=== PATIENT | male | born 1950 | race African-American/Black ===

== ENCOUNTER → 2018-12-05 | Outpatient (CLI) | payer MEDICARE ==
[~2018-12-05] MED LIST: ASPIR 8181 MG PO; ATORVASTATIN CA20 MG PO; GLIPIZIDE5 MG PO; IOPAMIDOL 370 MG/ML 200 ML INFUS..BTL INJ ONE; LEVEMIR100 UNIT/1 SC; LOSARTAN POTASS25 MG PO; METFORMIN HCL500 MG PO; NEXIUM40 MG PO; NITROGLYCERIN1 EAC1 TOP; PLAVIX75 MG PO; SODIUM CHLORIDE 0.9% 250ML 0 ML ONE; SODIUM CHLORIDE 0.9% 250ML 250 ML ONE; TOPROL XL50 MG PO; TYLENOL WITH C1 EACH PO
[2018-12-05 10:31] LABS: BLOOD UREA NITROGEN 17 mg/dL (7-26); BUN/CREATININE RATIO 17 (6-25); CREATININE, SERUM 0.99 mg/dL (0.72-1.25); EST GLOMERULAR FILTRATION RATE > 60 ML/MIN (60-)
--- NOTE | 2018-12-05 12:47 | Diagnostic Imaging Report ---
EXAM: CT abdomen and pelvis without and with contrast - Hematuria protocol INDICATION: Gross hematuria. COMPARISON: None. TECHNIQUE: Abdomen and pelvis were scanned in prone position without and with contrast. Delayed phase imaging obtained. Coronal and sagittal reformations were obtained. Routine protocol was performed. Scan was performed when during portal venous phase. IV CONTRAST: 150 mL of Isovue 370. ORAL CONTRAST: None RADIATION DOSE: Total DLP: 940.5 mGy*cm COMPLICATIONS: None FINDINGS: LINES and TUBES: None. LOWER THORAX: There is a 7 mm solid nodule within the right middle lobe. Coronary atherosclerosis. HEPATOBILIARY: There is a heterogeneous right hepatic dome lesion, measuring up to 2.8 cm, with suggestion of peripheral nodular enhancement. No biliary ductal dilation. GALLBLADDER: No radio-opaque stones or sludge. No wall thickening. SPLEEN: No splenomegaly. PANCREAS: No focal masses or ductal dilatation. ADRENALS: No adrenal nodules. Mildly thick walled left adrenal gland without discrete nodule. 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 No evidence of renal or ureteral stone. There are multiple stones within the ileal conduit, measuring up to 5 mm. No evidence of hydronephrosis. Kidneys enhance symmetrically. No hydronephrosis. No evidence of solid mass. The majority of the ureters are partially opacified and demonstrate no specific evidence of urothelial lesion. Pelvis: Multiple surgical clips within the pelvis and lower abdomen. There is a penile pump device. There are extensive postsurgical changes in the pelvis. There is presacral soft tissue thickening and stranding. The rectum is not well-visualized, and there is ill-defined air in the region of the lower pelvis which does not appear to be intraluminal for example on series 6, image 173. No evidence of drainable fluid collection. GI TRACT: No abnormal distention, wall thickening, or evidence of bowel obstruction. Status post appendectomy. There is distal transverse colostomy. Status post partial left colectomy. The descending and sigmoid colon and proximal rectum is visualized, however the distal rectum is not visualized. LYMPH NODES: No lymphadenopathy. VESSELS: There is moderate atherosclerotic disease in the aorta and major arterial branches. PERITONEUM / RETROPERITONEUM: No free air or fluid. BONES AND SOFT TISSUES: No acute bony findings or suspicious lytic or blastic lesions. IMPRESSION: Status post cystectomy with ileal conduit. Nonobstructing stones within the ileal conduit. No evidence of renal stone, hydronephrosis, or mass lesion. Status post partial left colectomy with distal transverse colostomy. Extensive postsurgical changes in the pelvis with presacral stranding and thickening. No evidence of drainable fluid collection. There is also ill-defined air in the region of lower pelvis, likely not intraluminal, with the distal rectum not visualized. Suggest correlation with surgical history. Comparison with prior imaging would be helpful. A 2.8 cm peripherally nodular enhancing lesion within the right hepatic lobe. This may represent a hemangioma, but is not completely evaluated on this study. Suggest liver protocol CT or MRI for further evaluation. A 7 mm solid nodule in the right middle lobe. Chest CT is recommended for further evaluation. Signed by: Dr. Kari Fragoso MD on 12/05/2018 12:43 PM
== END ==
LOC: CT 09:16
PROVIDERS: ATTEND Urology
DX: R31.0 Gross hematuria (principal)
CPT/HCPCS: 36415; 74178; 82565; 84520; J7050; Q9967

== ENCOUNTER → 2019-03-01 | Day surgery (SDC) | payer MEDICARE ==
[2019-02-27 13:33] LABS: BASOPHILS % 0.6 % (0.0-1.0); EOSINOPHILS # (AUTO) 0.1 (0.0-0.4); EOSINOPHILS % 1.8 % (0.0-6.0); HEMATOCRIT 38.9 % (38.2-49.6); LYMPHOCYTES # (AUTO) 1.7 (1.0-3.2); LYMPHOCYTES % 30.6 % (18.0-39.1); MEAN CORPUSCULAR HEMOGLOBIN 25.5 pg (28-32); MEAN CORPUSCULAR HGB CONC 30.8 g/dL (31-35); MEAN CORPUSCULAR VOLUME 82.6 fL (81-99); MONOCYTES # (AUTO) 0.4 (0.2-0.8); MONOCYTES % 7.9 % (4.4-11.3); NEUTROPHILS # (AUTO) 3.2 (2.1-6.9); NEUTROPHILS % 58.9 % (38.7-80.0); PLATELET COUNT 242 x10e3/uL (140-360); RED BLOOD COUNT 4.71 x10e6/uL (4.3-5.7)
[2019-02-27 13:54] LABS: ANION GAP 17.9 mmol/L (8-16); BLOOD UREA NITROGEN 21 mg/dL (7-26); BUN/CREATININE RATIO 20 (6-25); CALCIUM 9.5 mg/dL (8.4-10.2); CARBON DIOXIDE 22 mmol/L (22-29); CHLORIDE 104 mmol/L (98-107); CREATININE, SERUM 1.04 mg/dL (0.72-1.25); EST GLOMERULAR FILTRATION RATE > 60 ML/MIN (60-); GLUCOSE 91 mg/dL (74-118); POTASSIUM 3.9 mmol/L (3.5-5.1); SODIUM 140 mmol/L (136-145)
--- NOTE | 2019-02-27 15:12 | Diagnostic Imaging Report ---
EXAMINATION: CHEST 2 VIEWS INDICATION: Pre-operative COMPARISON: Chest radiograph of 07/11/2018 FINDINGS: LINES/TUBES:None LUNGS:The lungs are well-inflated. No focal consolidation or pulmonary edema. PLEURA:No pleural effusion or pneumothorax. MEDIASTINUM:The cardiomediastinal silhouette appears normal in size and shape. BONES/SOFT TISSUES:No acute osseous injury. ABDOMEN:No free air under the diaphragm. IMPRESSION: No focal pneumonia or pulmonary edema. Signed by: Sukhdev Miles MD on 02/27/2019 3:08 PM
[~2019-03-01] MED LIST changes: +B&O 60MG R/S 60 MG SUPP PR ONE; +CEFTRIAXONE SOD 1 GM/NS 50 ML 50 ML IV ONE; +FENTANYL CITRATE/PF 100MCG/2 ML INJ ONE; +GENTAMICIN 80MG/NS 100 ML 200 ML IV ONE; -IOPAMIDOL 370 MG/ML 200 ML INFUS..BTL INJ ONE; +IOPAMIDOL 610MG/1ML 300 MG/ML VIAL IV ONE; +LIDOCAINE HCL 2% LOCAL INJ 5 ML SDV VIAL INJ ONE; +MIDAZOLAM HCL 2 MG/2 ML VIAL ONE; +ONDANSETRON HCL INJ 2MG/ML 2ML 2 MG/ML VIAL ONE; +PHENYLEPHRINE HCL 1% 10 MG/ML VIAL ONE; +PROPOFOL IV EMULSION 10 MG/ML 20 ML VIAL ONE; +SEVOFLURANE INHAL SOLN 250 ML PEN BTL ONE; -SODIUM CHLORIDE 0.9% 250ML 0 ML ONE; -SODIUM CHLORIDE 0.9% 250ML 250 ML ONE
--- OUTSIDE RECORDS SUMMARY | 2019-03-01 11:15 | XMS REPORT | Clinical Summary ---
Author Author [facility] Organization [facility] Address Unknown Phone Unavailable Care Team Providers Care Content Specialist Name Role Phone Donaldo Stearns MD PCP Unavailable Allergies Comments Active Allergy Reactions Severity Noted Date Cefotetan Hives Medium 10/03/2016 Medications End Date Status Medication Sig Dispensed Refills Start Date Active metFORMIN (GLUCOPHAGE) Take 500 mg 0 500 mg tablet by mouth 2 (two) times a day with meals. Active sitaGLIPtin (JANUVIA) 100 Take 100 mg 0 MG tablet by mouth daily. Active glipiZIDE (GLUCOTROL) 10 Take 10 mg by 0 MG tablet mouth 2 (two) times a day before meals. Active lisinopril Take 5 mg by 0 (PRINIVIL,ZESTRIL) 5 mg mouth daily. tablet Active atorvastatin (LIPITOR) 80 Take 40 mg by 0 MG tablet mouth daily. Active aspirin (ECOTRIN) 81 MG Take 81 mg by 0 enteric coated tablet mouth daily. Active insulin detemir (LEVEMIR) Inject 10 0 100 unit/mL injection Units under the skin nightly. Active Problems No known active problems Social History Date Tobacco Use Types Packs/Day Years Used Never Assessed Sex Assigned at Date Recorded Not on file Industry Job Start Date Occupation Not on file Not on file Not on file Travel End Travel History Travel Start No recent travel history available. Last Filed Vital Signs Not on file Plan of Treatment Health Maintenance Due Date Last Done Comments COLONOSCOPY SCREENING 10/30/2001 SHINGLES VACCINES (#1) 10/30/2001 65+ PNEUMOCOCCAL VACCINE 10/30/2016 (1 of 2 - PCV13) INFLUENZA VACCINE 02/28/2019 Results Not on fileafter 02/28/2018 Insurance Type Payer Benefit Subscriber ID Effective Phone Address Plan / Dates Group [facility] MEDICARE AARP xxxxxxxxx [id number] MEDICARE resent [facility] [facility] Advance Directives Patient has advance care planning documents on file. For more information, tyrese lawrence contact: [facility] [address] [place] [address]
--- OUTSIDE RECORDS SUMMARY | 2019-03-01 11:16 | XMS REPORT ---
Author Author Donaldo Stearns Organization [employer] Address Unknown Phone Unavailable Care Team Providers Care Bessemer Converter Blower Name Role Phone Donaldo Stearns CP Unavailable Allergies No Known Allergies Problems Problem Type Condition Code Onset Dates Condition Status Problem Allergic bronchitis, unspecified asthma severity, uncomplicated J45.909 Active Problem Type 2 diabetes mellitus with hyperglycemia E11.65 Active Problem Hx of colonic polyp Z86.010 Active Problem Coronary artery disease involving [place] coronary artery of [place] heart without angina pectoris I25.10 Active Problem Personal history of malignant neoplasm of prostate Z85.46 Active Problem Moderate aortic stenosis I35.0 Active Problem Benign essential hypertension I10 Active Problem 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 Active Problem 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 Active Problem Diabetic polyneuropathy associated with type 2 diabetes mellitus E11.42 Active Problem penitentiary current use of insulin Z79.4 Active Problem Occlusion and stenosis of bilateral carotid arteries I65.23 Active Problem Cardiomyopathy, unspecified type I42.9 Active Problem History of penile implant Z98.89 Active Problem 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 Active Problem Athscl heart disease of [place] coronary artery w/o ang pctrs I25.10 Active Problem Benign paroxysmal positional vertigo, unspecified laterality H81.10 Active Problem Other and unspecified hyperlipidemia E78.5 Active Problem Cardiomyopathy, unspecified I42.9 Active Problem Type II or unspecified type diabetes mellitus with neurological manifestations, not stated as uncontrolled E11.49 Active Problem Occlusion and stenosis of unspecified carotid artery I65.29 Active Problem Hx of radical prostatectomy Z90.79 Active Problem Abdominal aortic aneurysm without rupture I71.4 Active Medications Medication Code System Code Instructions Start Date End Date Status Dosage Hemocyte Plus NDC [id number] 106-1 MG Orally Once a day February 15, 2019 Active 1 capsule Results No Known Results Summary Purpose [employer] Submission
--- OUTSIDE RECORDS SUMMARY | 2019-03-01 11:16 | XMS REPORT | Continuity of Care Document ---
Author Author [employer] Organization [employer] Address Unknown Phone Unavailable Care Team Providers Care Raw Sampler Name Role Phone [facility] Unavailable Unavailable Problems Problem Status Onset Date Classification Date Reported Comments Source Benign paroxysmal positional vertigo, unspecified laterality Active Problem 02/16/2019 2.0.1.098385.4.391.11.72431 Type II or unspecified type diabetes mellitus with neurological manifestations, not stated as uncontrolled Active Problem 02/16/2019 2.0.1.472910.4.391.11.65783 History of penile implant Active Problem 02/16/2019 2.0.1.955151.4.391.11.59458 Abdominal aortic aneurysm without rupture Active Problem 02/16/2019 2.0.1.666898.4.391.11.07101 Occlusion and stenosis of unspecified carotid artery Active Problem 02/16/2019 2.0.1.357374.4.391.11.35150 Allergic bronchitis, unspecified asthma severity, uncomplicated Active Problem 02/16/2019 2.16840.1.833444.4.391.11.27630 Hx of radical prostatectomy Active Problem 02/16/2019 2.0.1.327667.4.391.11.32272 Colovesical fistula Active Problem 02/16/2019 2.0.1.032280.4.391.11.53920 Cardiomyopathy, unspecified Active Problem 02/16/2019 2.160.1.304148.4.391.11.03253 Other and unspecified hyperlipidemia Active Problem 02/16/2019 2.840.1.884616.4.391.11.76829 Status of other artificial opening of urinary tract Active Problem 02/16/2019 2.16840.1.530207.4.391.11.47855 Personal history of malignant neoplasm of prostate Active Problem 02/16/2019 2.16.840.1.527884.4.391.11.97778 Athscl heart disease of [place] coronary artery w/o ang pctrs Active Problem 02/16/2019 2.16.840.1.636632.4.391.11.27908 Acquired stenosis of aortic valve Active Problem 01/20/2018 2.16.840.1.730116.4.391.11.35237 Benign essential hypertension Active Problem 02/16/2019 2.16.840.1.621569.4.391.11.50373 Diabetic polyneuropathy associated with type 2 diabetes mellitus Active Problem 02/16/2019 2.16.840.1.035634.4.391.11.65834 detention current use of insulin Active Problem 02/16/2019 2.16.840.1.446273.4.391.11.69762 Cardiomyopathy, unspecified type Active Problem 02/16/2019 2.16.840.1.510945.4.391.11.15469 Hx of colonic polyp Active Problem 02/16/2019 2.16.840.1.973650.4.391.11.77757 Type 2 diabetes mellitus with hyperglycemia Active Problem 02/16/2019 2.16.840.1.245419.4.391.11.72975 Liver mass Active Problem 08/30/2018 2.16.840.1.262637.4.391.11.98347 Ecchymoses, spontaneous Active Diagnosis 02/02/2017 2.16.840.1.942689.4.391.11.82548 Acute pharyngitis, unspecified etiology Active Diagnosis 02/18/2017 2.16.840.1.669495.4.391.11.24827 Occlusion and stenosis of bilateral carotid arteries Active Problem 02/16/2019 2.16.840.1.558284.4.391.11.58058 Encounter for general adult medical examination with abnormal findings Active Diagnosis 10/05/2017 2.16.840.1.724448.4.391.11.93277 BMI 25.0-25.9,adult Active Diagnosis 10/05/2017 2.16.840.1.147721.4.391.11.02844 Moderate aortic stenosis Active Problem 02/16/2019 2.16.840.1.678697.4.391.11.05264 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4.391.11.82062 Medications Medication Details Route Status Patient Instructions Ordering Provider Order Date Source Hemocyte Plus 1 capsule Orally Active 106-1 MG Orally Once a day Daryn 02/15/2019 2.16.840.1.358264.4.391.11.01507 Levemir FlexTouch inject Subcutaneously Active 100 units/mL Subcutaneously 50 units at night Daryn 11/03/2017 2.16.840.1.648659.4.391.11.77531 Advil Cold/Sinus 1 tablet as needed Orally Active 30-200 MG Orally every 6 hrs Daryn 02/14/2017 2.16.840.1.650102.4.391.11.63838 Zithromax Tri-Jd as directed Orally Active 500 MG Orally as directed Daryn 02/14/2017 2.16.840.1.166902.4.391.11.73474 Advil Cold/Sinus 1 tablet as needed Orally Active 30-200 MG Orally every 6 hrs Daryn 02/14/2017 2.16.840.1.522742.4.391..95581 Levemir Flex Touch Inject Subcutaneous Active 100 units/mL Subcutaneous 10 units Once daily with evening meal or at bedtime Daryn 12/27/2016 2.16.840.1.376319.4.391.68 Levemir Flex Touch Inject Subcutaneous Active 100 units/mL Subcutaneous 10 units Once daily with evening meal or at bedtime Daryn 12/27/2016 2.16.840.1.900062.4.391..46140 Promethazine-DM 5 ml as needed Orally Active 6.25-15 MG/5ML Orally every 6 hrs Daryn 10/12/2016 2.16.840.1.338016.4.391.68 Breo Ellipta 1 puff Inhalation Active 100-25 MCG/INH Inhalation Once a day Daryn 10/12/2016 2.16.840.1.214152.4.391.68 Naprosyn 1 tablet as needed Orally Active 500 mg Orally every 12 hrs Daryn 04/05/2016 2.16.840.1.971262.4.391.68 Zantac 1 tablet at bedtime Orally Active 150 MG Orally twice a day (bid) Daryn 04/05/2016 2.16.840.1.973657.4.391.68 Levemir Inject 10 UNITS Subcutaneous Active 100 UNIT/ML Subcutaneous ONCE AT BEDTIME Daryn 12/22/2015 2.16.840.1.752629.4.391.68 Hemocyte Plus 1 capsule Orally Active 106-1 MG Orally Once a day Daryn 12/22/2015 2.16.840.1.858575.4.391..08759 Tradjenta 1 tablet Orally Active 5 MG Orally Once a day Daryn 07/14/2015 2.16.840.1.385999.4.391..72675 GlipiZIDE ER TAKE ONE TABLET BY MOUTH TWICE DAILY Orally Active 10MG Orally twice a day (bid) Daryn 2.16840.1.800336.4.391 MetFORMIN HCl ER 2 tablet with evening meal Orally Active 500MG Orally twice a day (bid) Daryn 840.1.524098.4.391. Atorvastatin Calcium 1 tablet Orally Active 40MG Orally Once a day Daryn 840.1.652199.4.391. Aspir-81 1 tablet Orally Active 81 MG Orally Once a day Daryn 09.15.830.1.276180.4.391 Lisinopril 1 tablet Orally Active 5MG Orally Once a day Daryn 09.15.830.1.898796.4.391. Losartan Potassium 1/2 half tablet Orally Active 25 MG Orally Once a day Daryn 09.15.830.1.562010.4.391 MetFORMIN HCl ER 2 tablet with evening meal Orally Active 500MG Orally twice a day (bid) Daryn 09.15.830.1.343453.4.391 Levemir INJECT 10 UNITS SUBCUTANEOUSLY ONCE AT BEDTIME NA Active 100UNIT Daryn 840.1.284807.4.391 GlipiZIDE ER TAKE ONE TABLET BY MOUTH TWICE DAILY Orally Active 10MG Orally twice a day (bid) Daryn 840.1.417642.4.391 Januvia 1 tablet Orally Active 100MG Orally Once a day Daryn 840.1.024160.4.391 Losartan Potassium 1/2 half tablet Orally Active 25 MG Orally Once a day Daryn 840.1.151960.4.391. Aspir-81 1 tablet Orally Active 81 MG Orally Once a day Daryn 09.15.830.1.512593.4.391 Atorvastatin Calcium TAKE 1 TABLET BY MOUTH ONCE A DAY NA Active 40 MG Daryn 840.1.799468.4.391. Nitro-Dur 1 patch to skin remove after 12 hours Transdermal Active 0.1 MG/HR Transdermal Once a day Daryn 09.15.830.1.253307.4.391 GlipiZIDE ER TAKE 1 TABLET BY MOUTH TWICE DAILY NA Active 10 MG Daryn 09.15.830.1.543573.4.391 Metoprolol Tartrate 1 tablet with food Orally Active 25 MG Orally daily Daryn 840.1.282147.4.391 Levemir INJECT 25 UNITS SUBCUTANEOUSLY ONCE AT BEDTIME NA Active 100UNIT Daryn 09.15.830.1.075149.4.391 Plavix 1 tablet Orally Active 75 MG Orally Once a day Daryn 09.15.830.1.386532.4.391 MetFORMIN HCl ER TAKE 2 TABLETS BY MOUTH TWICE A DAY NA Active 500 MG Daryn 840.1.849948.4.391 OneTouch Delica Lancets 33G USE ONE LANCET TO CHECK BLOOD GLUCOSE TRHEE TIMES DAILY NA Active 33G Daryn 09.15.830.1.623948.4.391 Ranexa 1 tablet Orally Active 1000 MG Orally Twice a day Daryn 09.15.830.1.768109.4.391 OneTouch Verio USE ONE STRIP TO CHECK BLOOD GLUCOSE THREE TIMES DAILY NA Active - Daryn 840.1.880615.4.391 Januvia 1 tablet Orally Active 100 mg Orally Once a day Daryn 840.1.288005.4.391 MetFORMIN HCl ER 2 tablets Orally Active 500 mg Orally twice a day (bid) Daryn 840.1.869825.4.391 Atorvastatin Calcium 1 tablet Orally Active 40 mg Orally Once a day Daryn 09.15.830.1.577585.4.391 Omeprazole 1 capsule Orally Active 40 MG Orally Once a day Daryn 840.1.318876.4.391 GlipiZIDE 1 tablet Orally Active 10 mg Orally twice a day (bid) Daryn 09.15.830.1.430445.4.391 Lisinopril 1 tablet Orally Active 5 MG Orally Once a day Daryn 09.15.830.1.565620.4391 Luisuvia Unknown Orally Active 25 MG Orally Daryn 840.1.596252.4391 Acetaminophen With Codeine (Tylenol With Codeine #3 Tablet) 1 Each Tablet Every 4 Hours as needed for Pain Active [facility] Aspirin (Aspir 81) 81 Mg Tablet. Daily Active [facility] Atorvastatin Calcium 20 Mg Tablet Daily Active [facility] Clopidogrel Bisulfate (Plavix) 75 Mg Tablet Daily Active [facility] Esomeprazole Magnesium (Nexium) 40 Mg Capsule. Daily Active PROTONIX THERAPEUTIC SUBSTITUTE FOR NEXIUM PER [facility] Glipizide 5 Mg Tablet Daily Active [facility] Insulin Detemir (Levemir) 100 Unit/1 Ml Vial Daily Active [facility] Losartan Potassium 25 Mg Tablet Daily Active [facility] Metformin Hcl 500 Mg Tablet Twice A Day Active [facility] Metoprolol Succinate (Toprol Xl) 50 Mg Tab.er.24h Daily Active [facility] Nitroglycerin (Nitroglycerin Patch) 1 Each Patch.td24 Active WEARS FOR 12 HRS [facility] Allergies, Adverse Reactions, Alerts Substance Category Reaction Severity Reaction type Status Date Reported Comments Source sulfa Adverse Reaction Info Not Available Adverse Reaction Active 01/12/2018 2..840.1.436702.4.391 Cefotetan HIVES, BURNING Unknown Allergy to Substance Active 07/09/2018 [facility] Sulfacet-R Adverse Reaction Info Not Available Adverse Reaction Active 08/17/2018 2.16.840.1.878990.4.391 Cefotetan Disodium Adverse Reaction Info Not Available Adverse Reaction Active 08/17/2018 2..840.1.175276.4.391 Immunizations Immunization Date Given Site Status Last Updated Comments Source FLU VACCINE NO PRESERV 3 & > 04/05/2016 completed 2.16.840.1.159730.4.391.11.49401 Results Order Name Results Value Reference Range Date Interpretation Comments Source Capillary blood glucose measurement by glucometer (mass/volume) 274 70 - 120 07/17/2018 [facility] Blood leukocytes automated count (number/volume) 5.92 4.8 - 10.8 07/14/2018 [facility] Blood erythrocytes automated count (number/volume) 3.87 4.3 - 5.7 07/14/2018 [facility] Blood hemoglobin measurement (moles/volume) 10.0 14.0 - 18.0 07/14/2018 [facility] Automated blood hematocrit (volume fraction) 32.9 38.2 - 49.6 07/14/2018 [facility] Automated erythrocyte mean corpuscular volume 85.0 81 - 99 07/14/2018 [facility] Automated erythrocyte mean corpuscular hemoglobin (mass per erythrocyte) 25.8 28 - 32 07/14/2018 [facility] Automated erythrocyte mean corpuscular hemoglobin concentration measurement (mass/volume) 30.4 31 - 35 07/14/2018 [facility] RDW BldCo-Rto 14.9 11.7 - 14.4 07/14/2018 [facility] Automated blood platelet count (count/volume) 243 140 - 360 07/14/2018 [facility] Automated blood segmented neutrophil count as percentage of total leukocytes 68.0 38.7 - 80.0 07/14/2018 [facility] Automated blood lymphocyte count as percentage ot total leukocytes 21.6 18.0 - 39.1 07/14/2018 [facility] Automated blood monocyte count as percentage of total leukocytes 7.6 4.4 - 11.3 07/14/2018 [facility] Automated blood eosinophil count as percentage of total leukocytes 1.9 0.0 - 6.0 07/14/2018 [facility] Automated blood basophil count as percentage of total leukocytes 0.7 0.0 - 1.0 07/14/2018 [facility] IM GRANULOCYTES % 0.2 0.0 - 1.0 07/14/2018 [facility] Automated blood neutrophil count 4.0 2.1 - 6.9 07/14/2018 [facility] Blood lymphocytes count (number/volume) 1.3 1.0 - 3.2 07/14/2018 [facility] Blood monocytes automated count (number/volume) 0.5 0.2 - 0.8 07/14/2018 [facility] Automated blood eosinophil count 0.1 0.0 - 0.4 07/14/2018 [facility] Automated blood basophil count (count/volume) 0.0 0.0 - 0.1 07/14/2018 [facility] Absolute Immature Granulocyte (auto 0.01 0 - 0.1 07/14/2018 [facility] Serum or plasma sodium measurement (moles/volume) 137 136 - 145 07/14/2018 [facility] Serum or plasma potassium measurement (moles/volume) 4.4 3.5 - 5.1 07/14/2018 [facility] Serum or plasma chloride measurement (moles/volume) 108 98 - 107 07/14/2018 [facility] Serum or plasma carbon dioxide, total measurement (moles/volume) 17 22 - 29 07/14/2018 [facility] Serum or plasma anion gap 16.4 8 - 16 07/14/2018 [facility] Serum or plasma urea nitrogen measurement (mass/volume) 7 7 - 26 07/14/2018 [facility] Serum or plasma creatinine measurement (mass/volume) 0.83 0.72 - 1.25 07/14/2018 [facility] Serum or plasma urea nitrogen/creatinine mass ratio 8 6 - 25 07/14/2018 [facility] Estimated glomerular filtration rate (GFR) determination > 60 60 07/14/2018 [facility] Glucose measurement 165 74 - 118 07/14/2018 [facility] Serum or plasma calcium measurement (mass/volume) 8.4 8.4 - 10.2 07/14/2018 [facility] Pathology Reports No Data Provided for This Section Diagnostic Reports No Data Provided for This Section Consultation Notes No Data Provided for This Section Discharge Summaries No Data Provided for This Section History and Physicals No Data Provided for This Section Vital Signs Vital Sign Value Date Comments Source Weight 165.8 08/17/2018 2.16.840.1.693613.4.391.11.25193 Height 68.0 08/17/2018 2.16.840.1.729594.4.391.11.58568 Temperature Oral (F) 96.0 F 08/17/2018 2.16.840.1.831325.4.391.11.42596 Heart Rate 85 08/17/2018 2.16.840.1.143056.4.391.11.59022 Diastolic (mm Hg) 70 08/17/2018 2.16.840.1.379630.4.391.11.92426 Systolic (mm Hg) 108 08/17/2018 2.16.840.1.114653.4.391.11.04172 Weight 168.4 04/20/2018 2.16.840.1.679640.4.391.11.79100 Height 68.0 04/20/2018 2.16.840.1.404880.4.391.11.16257 Temperature Oral (F) 97.5 F 04/20/2018 2.16.840.1.001871.4.391.11.61494 Heart Rate 91 04/20/2018 2.16.840.1.462512.4.391.11.51354 Diastolic (mm Hg) 72 04/20/2018 2.16.840.1.830537.4.391.11.61373 Systolic (mm Hg) 111 04/20/2018 2.16.840.1.601740.4.391.11.28743 Weight 167.9 01/12/2018 2.16.840.1.920081.4.391.11.40677 Height 68.0 01/12/2018 2.16.840.1.755157.4.391.11.08895 Temperature Oral (F) 97.5 F 01/12/2018 2.16.840.1.388252.4.391.11.32178 Heart Rate 82 01/12/2018 2.16.840.1.415215.4.391.11.77833 Diastolic (mm Hg) 71 01/12/2018 2.16.840.1.576578.4.391.11.32635 Systolic (mm Hg) 121 01/12/2018 2.16.840.1.313198.4.391.11.54049 Weight 167.5 10/13/2017 2.16.840.1.300210.4.391.11.75605 Height 68.0 10/13/2017 2.16.840.1.769992.4.391.11.67256 Temperature Oral (F) 98.1 F 10/13/2017 2.16.840.1.810211.4.391.11.05174 Heart Rate 77 10/13/2017 2.16.840.1.600636.4.391.11.41428 Diastolic (mm Hg) 69 10/13/2017 2.16.840.1.222514.4.391.11.22385 Systolic (mm Hg) 111 10/13/2017 2.16.840.1.797845.4.391.11.24693 Weight 169.8 09/15/2017 2.16.840.1.900646.4.391.11.72164 Height 68.0 09/15/2017 2.16.840.1.186877.4.391.11.46304 Temperature Oral (F) 98.0 F 09/15/2017 2.16.840.1.179609.4.391.11.17938 Heart Rate 83 09/15/2017 2.16.840.1.438389.4.391.11.42006 Diastolic (mm Hg) 72 09/15/2017 2.16.840.1.769553.4.391.11.78721 Systolic (mm Hg) 122 09/15/2017 2.16.840.1.198230.4.391.11.95736 Weight 164.4 05/15/2017 2.16.840.1.428079.4.391.11.94796 Height 68.0 05/15/2017 2.16.840.1.472089.4.391.11.29172 Temperature Oral (F) 98.3 F 05/15/2017 2.16.840.1.935791.4.391.11.50375 Heart Rate 76 05/15/2017 2.16.840.1.186988.4.391.11.14876 Diastolic (mm Hg) 69 05/15/2017 2.16.840.1.410298.4.391.11.49587 Systolic (mm Hg) 115 05/15/2017 2.16.840.1.167897.4.391.11.01023 Weight 158 02/14/2017 2.16.840.1.066251.4.391.11.92643 Height 68.0 02/14/2017 2.16.840.1.697845.4.391.11.22901 Temperature Oral (F) 98.4 F 02/14/2017 2.16.840.1.451250.4.391.11.68623 Heart Rate 85 02/14/2017 2.16.840.1.378085.4.391.11.70392 Diastolic (mm Hg) 70 02/14/2017 2.16.840.1.885921.4.391.11.41861 Systolic (mm Hg) 98 02/14/2017 2.16.840.1.303447.4.391.11.98100 Weight 160.7 01/23/2017 2.16.840.1.727569.4.391.11.91763 Height 68.0 01/23/2017 2.16.840.1.501292.4.391.11.10028 Temperature Oral (F) 98.4 F 01/23/2017 2.16.840.1.632273.4.391.11.98693 Heart Rate 75 01/23/2017 2.16.840.1.828216.4.391.11.43893 Diastolic (mm Hg) 59 01/23/2017 2.16.840.1.782760.4.391.11.04949 Systolic (mm Hg) 91 01/23/2017 2.16.840.1.622827.4.391.11.30460 Weight 161 01/12/2017 2.16.840.1.434843.4.391.11.49364 Height 68.0 01/12/2017 2.16.840.1.525117.4.391.11.56268 Temperature Oral (F) 98.2 F 01/12/2017 2.16.840.1.920130.4.391.11.04677 Heart Rate 76 01/12/2017 2.16.840.1.771768.4.391.11.07663 Diastolic (mm Hg) 63 01/12/2017 2.16.840.1.744656.4.391.11.15491 Systolic (mm Hg) 105 01/12/2017 2.16.840.1.012573.4.391.11.58698 Weight 160.5 10/12/2016 2.16.840.1.571785.4.391.11.87810 Height 68.0 10/12/2016 2.16.840.1.936807.4.391.11.72294 Temperature Oral (F) 98.1 F 10/12/2016 2.16.840.1.072309.4.391.11.95515 Heart Rate 8 10/12/2016 2.16.840.1.616617.4.391.11.49208 Diastolic (mm Hg) 63 10/12/2016 2.16.840.1.629653.4.391.11.21388 Systolic (mm Hg) 100 10/12/2016 2.16.840.1.148066.4.391.11.43050 Weight 164.0 08/05/2016 2.16.840.1.272544.4.391.11.81433 Height 68.0 08/05/2016 2.16.840.1.647381.4.391.11.19025 Temperature Oral (F) 98.0 F 08/05/2016 2.16.840.1.109586.4.391.11.84079 Heart Rate 87 08/05/2016 2.16.840.1.937456.4.391.11.58556 Diastolic (mm Hg) 65 08/05/2016 2.16.840.1.634857.4.391.11.75480 Systolic (mm Hg) 94 08/05/2016 2.16.840.1.567653.4.391.11.55515 Weight 167.0 04/05/2016 2.16.840.1.962718.4.391.11.71463 Height 68.0 04/05/2016 2.16.840.1.738076.4.391.11.12277 Temperature Oral (F) 98.0 F 04/05/2016 2.16.840.1.341796.4.391.11.41052 Heart Rate 73 04/05/2016 2.16.840.1.339809.4.391.11.37630 Diastolic (mm Hg) 67 04/05/2016 2.16.840.1.294529.4.391.11.46434 Systolic (mm Hg) 114 04/05/2016 2.16.840.1.825406.4.391.11.54860 Weight 162.8 12/02/2015 2.16.840.1.521898.4.391.11.52381 Height 68.0 12/02/2015 2.16.840.1.158372.4.391.11.60617 Temperature Oral (F) 97.9 F 12/02/2015 2.16.840.1.893533.4.391.11.11092 Heart Rate 73 12/02/2015 2.16.840.1.564528.4.391.11.78111 Diastolic (mm Hg) 80 12/02/2015 2.16.840.1.376769.4.391.11.06682 Systolic (mm Hg) 128 12/02/2015 2.16.840.1.704522.4.391.11.39173 Weight 166.2 08/03/2015 2.16.840.1.442073.4.391.11.26088 Height 68.0 08/03/2015 2.16.840.1.521538.4.391.11.21675 Temperature Oral (F) 98.2 F 08/03/2015 2.16.840.1.991491.4.391.11.92339 Heart Rate 77 08/03/2015 2.16.840.1.276767.4.391.11.39613 Diastolic (mm Hg) 69 08/03/2015 2.16.840.1.200504.4.391.11.15210 Systolic (mm Hg) 111 08/03/2015 2.16.840.1.362616.4.391.11.20485 Weight 162.5 07/07/2015 2.16.840.1.449587.4.391.11.49654 Height 68.0 07/07/2015 2.16.840.1.166199.4.391.11.32834 Temperature Oral (F) 98.0 F 07/07/2015 2.16.840.1.967299.4.391.11.69210 Heart Rate 91 07/07/2015 2.16.840.1.008728.4.391.11.88753 Diastolic (mm Hg) 59 07/07/2015 2.16.840.1.924555.4.391.11.34092 Systolic (mm Hg) 98 07/07/2015 2.16.840.1.322428.4.391.11.84848 Encounters Location Location Details Encounter Type Encounter Number Reason For Visit Attending Provider ADM Date DC Date Status Source [facility] Unknown [id number] 2014 2014 2.16.840.1.494968.4.391.11.03813 [facility] Unknown [id number] 2014 2014 2.16.840.1.145229.4.391.11.16686 [facility] Unknown [id number] 2014 2014 2.16.840.1.769950.4.391.11.19360 [facility] Unknown [id number] 2014 2014 2.16.840.1.616113.4.391.11.93733 [facility] Unknown [id number] 2014 2014 2.16.840.1.329519.4.391.11.84996 [facility] Unknown [id number] 2014 2014 2.16.840.1.083260.4.391.11.69865 [facility] Unknown [id number] 2014 2014 2.16.840.1.301253.4.391.11.55653 [facility] Unknown [id number] 2014 2014 2.16.840.1.006684.4.391.11.18656 [facility] Unknown [id number] 2014 2014 2.16.840.1.036767.4.391.11.63128 [facility] Unknown [id number] 2014 2014 2.16.840.1.027310.4.391.11.61767 [facility] Unknown [id number] 2014 2014 2.16.840.1.183637.4.391.11.71127 [facility] Unknown [id number] 2014 2014 2.16.840.1.014503.4.391.11.92597 [facility] Unknown [id number] 2014 2014 2.16.840.1.334111.4.391..90653 [facility] still having dizziness [id number] 11/18/2014 11/18/2014 2.16.840.1.916568.4.391..92983 [facility] still having dizziness [id number] 11/18/2014 11/18/2014 2.16.840.1.621302.4.391..76396 [facility] still having dizziness [id number] 11/18/2014 11/18/2014 2.16.840.1.202760.4.391..27295 [facility] still having dizziness [id number] 11/18/2014 11/18/2014 2.16.840.1.858816.4.391..65175 [facility] still having dizziness [id number]-[id number] 11/18/2014 11/18/2014 2.16.840.1.157564.4.391.68 [facility] still having dizziness [id number] 11/18/2014 11/18/2014 2.16.840.1.806507.4.391.11.94440 [facility] still having dizziness [id number] 11/18/2014 11/18/2014 2.16.840.1.469117.4.391.11.71469 [facility] still having dizziness [id number] 11/18/2014 11/18/2014 2.16.840.1.281979.4.391.11.13138 [facility] still having dizziness [id number] 11/18/2014 11/18/2014 2.16.840.1.993181.4.391.11.95571 [facility] still having dizziness [id number] 11/18/2014 11/18/2014 2.16.840.1.499826.4.391.11.45069 [facility] still having dizziness [id number] 11/18/2014 11/18/2014 2.16.840.1.931296.4.391.11.02446 [facility] still having dizziness [id number] 11/18/2014 11/18/2014 2.16.840.1.204076.4.391.1144306 [facility] still having dizziness [id number] 11/18/2014 11/18/2014 2.16.840.1.016744.4.391.11.60994 [facility] Unknown [id number] 12/29/2014 12/29/2014 2.16.840.1.286729.4.391.11.26952 [facility] Unknown [id number] 12/29/2014 12/29/2014 2.16.840.1.714511.4.391.11.92259 [facility] Unknown [id number]-575s-413l290xl24o 12/29/2014 12/29/2014 2.16.840.1.513437.4.391.11.34603 [facility] Unknown [id number]-p85x-9ypq-[id number] 12/29/2014 12/29/2014 2.16.840.1.349553.4.391.11.51672 [facility] Unknown [id number] 12/29/2014 12/29/2014 2.16.840.1.896030.4.391.11.83024 [facility] Unknown [id number]-1w67-9341u3b880k8 12/29/2014 12/29/2014 2.16.840.1.408769.4.391.11.56674 [facility] Unknown [id number]-a7o0-2olz-9598-mr41u3snp795 12/29/2014 12/29/2014 2.16.840.1.524015.4.391.11.18152 [facility] Unknown [id number]-9l57-6nj808ya41v8 12/29/2014 12/29/2014 2.16.840.1.919217.4.391.11.60502 [facility] Unknown [id number]-jo1o-1cbq-b8gg-k372d531866x 12/29/2014 12/29/2014 2.16.840.1.131798.4.391.11.75490 [facility] Unknown [id number]-s7y6-0w26g3u99e61 12/29/2014 12/29/2014 2.16.840.1.943078.4.391.11.67275 [facility] Unknown [id number]-9254-3p39-4404-0m92o91n8dwl 12/29/2014 12/29/2014 2.16.840.1.618121.4.391.11.46602 [facility] Unknown [id number]-u360-0777-a5k3-6211941gq137 12/29/2014 12/29/2014 2.16.840.1.814828.4.391.11.23382 [facility] Unknown rd0uost5-ux34-5c8k-4e4i-68duz4j907e1 12/29/2014 12/29/2014 2.16.840.1.098312.4.391.11.55954 [facility] 3 month f/u a4a08l24-541e-35i7-1h86-wsm200hrw83k 01/27/2015 01/27/2015 2.16.840.1.281896.4.391.11.03805 [facility] 3 month f/u x22s242l-i035-747r-b754-256gy1p2z7k0 01/27/2015 01/27/2015 2.16.840.1.070372.4.391.11.79541 [facility] 3 month f/u 1ko1030x-7115-1e74-u138-e17001955q23 01/27/2015 01/27/2015 2.16.840.1.227724.4.391.11.32151 [facility] 3 month f/u 5uc59m88-9u5b-5q32-lg5v-ihft8n2dtl60 01/27/2015 01/27/2015 2.16.840.1.368306.4.391.11.05494 [facility] 3 month f/u v3xp2hs9-bp70-1320-ens0-534i74ud11h7 01/27/2015 01/27/2015 2.16.840.1.342833.4.391.11.77608 [facility] 3 month f/u b33e871l-6845-104w-0ibh-u0203u12w3gs 01/27/2015 01/27/2015 2.16.840.1.342382.4.391.11.62593 [facility] 3 month f/u 493s510a-70ey-7790-6989-aop9p8694qs9 01/27/2015 01/27/2015 2.16.840.1.751043.4.391.11.90303 [facility] 3 month f/u 3mmt887z-o7ob-14b2-8z88-t961xl04ji1h 01/27/2015 01/27/2015 2.16.840.1.315769.4.391.11.44361 [facility] 3 month f/u 97175009-743k-2f0x-xmun-0660p409emt4 01/27/2015 01/27/2015 2.16.840.1.547203.4.391.11.62061 [facility] 3 month f/u sz0h03y0-z7t3-1u49-mq75-795485mb4350 01/27/2015 01/27/2015 2.16.840.1.322903.4.391.11.28630 [facility] 3 month f/u 25jxc60k-rt21-4540-883y-7r57z7208l6j 01/27/2015 01/27/2015 2.16.840.1.502383.4.391.11.24984 [facility] 3 month f/u 8v0e4bm3-8887-0b13-mb29-3ydfd46jaug9 01/27/2015 01/27/2015 2.16.840.1.736301.4.391.11.46170 [facility] 3 month f/u x9dg2r8b-0516-71m9-77bf-nwd5r02r3z86 01/27/2015 01/27/2015 2.16.840.1.941378.4.391.11.57174 [facility] Returned call [id number]-3om3-08m6-765s107ed208 01/28/2015 01/28/2015 2.16.840.1.682294.4.391.11.58175 [facility] Returned call [id number]-8416-5mg1-1m28-y73752x13o11 01/28/2015 01/28/2015 2.16.840.1.889178.4.391.11.54644 [facility] Returned call [id number]-o51a-[id number] 01/28/2015 01/28/2015 2.16.840.1.586666.4.391.11.75603 [facility] Returned call [id number]-90n9-[id number] 01/28/2015 01/28/2015 2.16.840.1.753618.4.391..71447 [facility] Returned call 5offfl3o-5i53-73oo-z424-8b851i228g71 01/28/2015 01/28/2015 2.16.840.1.703559.4.391..30802 [facility] Returned call [id number]-n78f-07xe-d7ji-[id number] 01/28/2015 01/28/2015 2.16.840.1.862902.4.391..68731 [facility] Returned call pzx152sg-i9g4-77qc-437e-h7129498i8fv 01/28/2015 01/28/2015 2.16.840.1.033202.4.391.11.79029 [facility] Returned call [id number]-qo7refd09694 01/28/2015 01/28/2015 2.16.840.1.889787.4.391..46816 [facility] Returned call [id number]-o3ta-3556f80tue32 01/28/2015 01/28/2015 2.16.840.1.635361.4.391.11.64261 [facility] Returned call [id number]-t23w-246c-[id number] 01/28/2015 01/28/2015 2.16.840.1.719312.4.391.11.12825 [facility] Returned call [id number]-z2yn-2p6w-5rdx-5d94kwd494m7 01/28/2015 01/28/2015 2.16.840.1.966403.4.391.11.81350 [facility] Returned call [id number]-bl2k-2624-4xt3-67i13lb9y1q2 01/28/2015 01/28/2015 2.16.840.1.009676.4.391.11.02231 [facility] Returned call [id number]-a914-w4jf0o2tm934 01/28/2015 01/28/2015 2.16.840.1.261886.4.391.11.41530 [facility] 2 MONTH FOLLOWUP [id number]-wm2g-491eb01c4t4i 03/30/2015 03/30/2015 2.16.840.1.309633.4.391.11.26565 [facility] 2 MONTH FOLLOWUP [id number]-c4e7-3w63-96t2-vimg576w55c3 03/30/2015 03/30/2015 2.16.840.1.391116.4.391.11.50669 [facility] 2 MONTH FOLLOWUP 11bud362-596e-9d61-i426-5b13c32y22us 03/30/2015 03/30/2015 2.16.840.1.467902.4.391.11.10731 [facility] 2 MONTH FOLLOWUP 0g784wd9-825w-49ef-6810-0wyzj52l97wt 03/30/2015 03/30/2015 2.16.840.1.351921.4.391.11.06528 [facility] 2 MONTH FOLLOWUP yxi1y356-zz66-5b15-00m6-9e77ohxm48jk 03/30/2015 03/30/2015 2.16.840.1.932752.4.391.11.17839 [facility] 2 MONTH FOLLOWUP 5c5l5d5g-n187-25kc-z0sh-z7g7j2z58317 03/30/2015 03/30/2015 2.16.840.1.052185.4.391.11.67975 [facility] 2 MONTH FOLLOWUP k5a01hla-ha21-4606-6e7n-u451e5l7b82i 03/30/2015 03/30/2015 2.16.840.1.424440.4.391.11.96446 [facility] 2 MONTH FOLLOWUP 5v56694u-c02x-7fft-lt9f-h7dzw45xv5mg 03/30/2015 03/30/2015 2.16.840.1.143486.4.391.11.18492 [facility] 2 MONTH FOLLOWUP 7285i452-1k82-3111-l24t-22q015v39sf6 03/30/2015 03/30/2015 2.16.840.1.665977.4.391.11.62097 [facility] 2 MONTH FOLLOWUP z21k73xj-o35h-4i58-488i-4d6b01n865ud 03/30/2015 03/30/2015 2.16.840.1.085359.4.391.11.30893 [facility] 2 MONTH FOLLOWUP 439j5792-7122-9617-nc70-8608446rv75g 03/30/2015 03/30/2015 2.16.840.1.088552.4.391.11.03779 [facility] 2 MONTH FOLLOWUP i4w1i7ur-4pt7-684w-a684-8v164bd2139w 03/30/2015 03/30/2015 2.16.840.1.236284.4.391.11.13777 [facility] 2 MONTH FOLLOWUP f59yg31r-2vo3-5287-2n86-037m901s0j02 03/30/2015 03/30/2015 2.16.840.1.957227.4.391.11.97068 [facility] referrals 0ei1515y-5605-5d5y-u222-36a37lc462t4 07/07/2015 07/07/2015 2.16.840.1.629559.4.391.11.98000 [facility] referrals kz1hkw24-lf65-1523-zqk6-015n5z28721x 07/07/2015 07/07/2015 2.16.840.1.428677.4.391.11.32736 [facility] referrals 874y7a84-b3x9-4r87-8810-4i9ddf7wj518 07/07/2015 07/07/2015 2.16.840.1.254454.4.391.11.63774 [facility] referrals 0zsqc5ge-eqq2-0dd9-21hb-1mkk1m4a8fq3 07/07/2015 07/07/2015 2.16.840.1.446438.4.391.11.35113 [facility] referrals vav012p9-5okh-4lbu-oa06-48hx048fg4n0 07/07/2015 07/07/2015 2.16.840.1.647864.4.391.11.81004 [facility] referrals 531b3500-6416-699g-im3x-518146vz2187 07/07/2015 07/07/2015 2.16.840.1.745981.4.391.11.16732 [facility] referrals w089sqgx-457h-6j67-2dhy-67x14686t2c3 07/07/2015 07/07/2015 2.16.840.1.131767.4.391.11.97548 [facility] referrals v11hb507-q041-0823-lne0-3bhq39vk15j3 07/07/2015 07/07/2015 2.16.840.1.947109.4.391.11.41364 [facility] referrals 6h195w99-g138-4175-fm4p-5c3x595c9b8h 07/07/2015 07/07/2015 2.16.840.1.949194.4.391.11.27715 [facility] referrals 77kyo41t-465d-67q3-89ly-5zc98hvt4588 07/07/2015 07/07/2015 2.16.840.1.599865.4.391.11.14865 [facility] referrals 9667v5x5-325z-436o-rrtu-15qwl5546n55 07/07/2015 07/07/2015 2.16.840.1.961447.4.391.11.34177 [facility] referrals 26r16dzp-731p-6876-7222-9u0dh1n5l4s4 07/07/2015 07/07/2015 2.16.840.1.368466.4.391.11.63500 [facility] referrals 61t6s135-6d7y-75i1-4982-y6677200d1n0 07/07/2015 07/07/2015 2.16.840.1.682664.4.391.11.12899 [facility] Unknown [id number]-x953-57y0660d6778 07/14/2015 07/14/2015 2.16.840.1.611350.4.391.11.80698 [facility] Unknown [id number]73m89q6p8 07/14/2015 07/14/2015 2.16.840.1.520076.4.391.11.07302 [facility] Unknown [id number]-3syk-9948-60u6-45rm419622x0 07/14/2015 07/14/2015 2.16.840.1.275891.4.391.11.00304 [facility] Unknown 81cfh389-55v0-4h0a-wlfl-yk8z1e783821 07/14/2015 07/14/2015 2.16.840.1.787909.4.391.11.11563 [facility] Unknown z4z81ddt-2325-48x8-11ku-z7w19z57158n 07/14/2015 07/14/2015 2.16.840.1.111400.4.391.11.93767 [facility] Unknown [id number]-ne65-07jm423892xf 07/14/2015 07/14/2015 2.16.840.1.215359.4.391.11.99050 [facility] Unknown [id number]-s336mz5387g3 07/14/2015 07/14/2015 2.16.840.1.745115.4.391.11.30335 [facility] Unknown [id number]-552i2u22pq76 07/14/2015 07/14/2015 2.16.840.1.804105.4.391.11.47410 [facility] Unknown [id number]-sn9j-58r6-2j60-y9319lc03269 07/14/2015 07/14/2015 2.16.840.1.182564.4.391.11.44721 [facility] Unknown [id number]-l405-59m9-gkor-b85611sz53kq 07/14/2015 07/14/2015 2.16.840.1.526638.4.391.11.80219 [facility] Unknown [id number]-ss32-8816705tolvx 07/14/2015 07/14/2015 2.16.840.1.476844.4.391.11.46309 [facility] Unknown [id number]-861v-9h2b-3290-d6h2ruz885z4 07/14/2015 07/14/2015 2.16.840.1.709642.4.391.11.36814 [facility] 4 MONTH FOLLOW UP [id number]-d42h-79r8-0y1v-9i38986822n3 08/03/2015 08/03/2015 2.16.840.1.175673.4.391.11.15024 [facility] 4 MONTH FOLLOW UP [id number]-f34m1gg88w32 08/03/2015 08/03/2015 2.16.840.1.120353.4.391.11.64797 [facility] 4 MONTH FOLLOW UP 176280t6-3t94-88c2-0ws5-9eyl730lhq70 08/03/2015 08/03/2015 2.16.840.1.444661.4.391.11.95891 [facility] 4 MONTH FOLLOW UP mq1e6c39-8r62-8u5x-0f8s-3ve5j0k12367 08/03/2015 08/03/2015 2.16.840.1.311010.4.391.11.79377 [facility] 4 MONTH FOLLOW UP kk7385d3-5o2q-1e0s-kok3-848n731fe518 08/03/2015 08/03/2015 2.16.840.1.609877.4.391.11.62157 [facility] 4 MONTH FOLLOW UP 8mqd41la-3l60-52c7-w59u-09k2451ou3qi 08/03/2015 08/03/2015 2.16.840.1.155551.4.391.11.47084 [facility] 4 MONTH FOLLOW UP 23v9jph6-9663-48f4-nb5l-03g49829z31f 08/03/2015 08/03/2015 2.16.840.1.699387.4.391.11.33282 [facility] 4 MONTH FOLLOW UP 9446274o-959p-6432-00b2-87n0f82xkq68 08/03/2015 08/03/2015 2.16.840.1.249966.4.391.11.30312 [facility] 4 MONTH FOLLOW UP eb674d8b-7835-58v2-2pe5-53pa4110b931 08/03/2015 08/03/2015 2.16.840.1.553323.4.391.11.58605 [facility] 4 MONTH FOLLOW UP [id number]-k7k6-685s-b0b5-44prlr50404q 08/03/2015 08/03/2015 2.16.840.1.353789.4.391.11.63091 [facility] 4 MONTH FOLLOW UP 4w5zfj70-9v11-97j1-8tlw-wg5jt6594138 08/03/2015 08/03/2015 2.16.840.1.182728.4.391.11.99629 [facility] 4 MONTH F/U 6tsd3993-j1u2-2b05-4255-cl0085kw8394 12/02/2015 12/02/2015 2.16.840.1.279397.4.391.11.69626 [facility] 4 MONTH F/U yapc875m-4f9m-3060-v5r4-82360e41612e 12/02/2015 12/02/2015 2.16.840.1.330660.4.391.11.89796 [facility] 4 MONTH F/U 41w33h06-tjf8-6856-d111-88c80w32w1f5 12/02/2015 12/02/2015 2.16.840.1.804719.4.391.11.73952 [facility] 4 MONTH F/U 23e14ilb-f3b3-1z84-r526-zd51cm829021 12/02/2015 12/02/2015 2.16.840.1.381915.4.391.11.53055 [facility] 4 MONTH F/U u2m773av-846i-035c-t745-ah4k6ap807ot 12/02/2015 12/02/2015 2.16.840.1.103747.4.391.11.87907 [facility] 4 MONTH F/U 8c56vpq8-12qw-8uq2-8c85-is2021g89209 12/02/2015 12/02/2015 2.16.840.1.144978.4.391.11.69941 [facility] 4 MONTH F/U 5kfr631a-3023-0220-6v0g-4470288vh3i0 12/02/2015 12/02/2015 2.16.840.1.788350.4.391.11.72514 [facility] 4 MONTH F/U 03yk2f80-8074-0g81-1i30-8i5i0558c48e 12/02/2015 12/02/2015 2.16.840.1.000964.4.391.11.47090 [facility] 4 MONTH F/U pcg40wfo-5527-6903-i2gw-r4dx81ycb2jb 12/02/2015 12/02/2015 2.16.840.1.086014.4.391.11.46190 [facility] 4 MONTH F/U u53qp35i-1042-3c48-2l96-34h90rn8my2d 12/02/2015 12/02/2015 2.16.840.1.518557.4.391.11.24824 [facility] Unknown [id number]-t6u4-13znu265979f 12/22/2015 12/22/2015 2.16.840.1.522046.4.391.11.81378 [facility] Unknown 01k8o96s-43k4-4q0z-c714-6c80805e2077 12/22/2015 12/22/2015 2.16.840.1.568012.4.391.11.98243 [facility] Unknown 72nhj6jp-70zn-1436-1a25-9i2v2w0778p2 12/22/2015 12/22/2015 2.16.840.1.905264.4.391.11.82159 [facility] Unknown [id number]-u7i9-e6y565d56m00 12/22/2015 12/22/2015 2.16.840.1.431804.4.391.11.96860 [facility] Unknown d06129l7-i21y-1v38-q1x7-m7zs12k7d44t 12/22/2015 12/22/2015 2.16.840.1.791809.4.391.11.11692 [facility] Unknown p37z7541-8813-78ig-9us5-a01540367y5g 12/22/2015 12/22/2015 2.16.840.1.564307.4.391.11.18721 [facility] Unknown [id number]-3e88-3181-y299s3321744 12/22/2015 12/22/2015 2.16.840.1.818284.4.391.11.81776 [facility] Unknown 3uhji1w9-b96f-026k-ie58-46z1v34a7wbg 12/22/2015 12/22/2015 2.16.840.1.642342.4.391.11.15480 [facility] Unknown [id number]-j928-41n28eom6346 12/22/2015 12/22/2015 2.16.840.1.821165.4.391.11.62082 [facility] Unknown [id number]-874g-45g9-x329-t79a635e6573 02/16/2016 02/16/2016 2.16.840.1.133568.4.391.11.83582 [facility] Unknown y6l02xi9-f43v-8b0d-62x6-162pq32j9968 02/16/2016 02/16/2016 2.16.840.1.870975.4.391.11.79505 [facility] Unknown [id number]-pkhb-65yi-879n-9x2d646dq2as 02/16/2016 02/16/2016 2.16.840.1.913741.4.391.11.15162 [facility] Unknown a9ar1218-q2c3-8yna-u740-254363o6fu1p 02/16/2016 02/16/2016 2.16.840.1.404175.4.391.11.14726 [facility] Unknown 28hb0k1r-2pvc-3n1x-0503-10003qs43560 02/16/2016 02/16/2016 2.16.840.1.985381.4.391.11.10672 [facility] Unknown 80kgd0sy-0jo0-4l26-7714-76f7ib60f364 02/16/2016 02/16/2016 2.16.840.1.438505.4.391.11.56067 [facility] Unknown ue9x628l-321l-03dw-4696-f15082850tv4 02/16/2016 02/16/2016 2.16.840.1.805065.4.391.11.49268 [facility] Unknown 42p5o0n0-5hl0-26lb-6q9g-s4865xlya185 02/16/2016 02/16/2016 2.16.840.1.378037.4.391.11.66708 [facility] 4 month follow up 44t3811r-l064-24d3-6ps3-734eb21i77ei 04/05/2016 04/05/2016 2.16.840.1.533809.4.391.11.76788 [facility] 4 month follow up 4p97d617-6qy2-9595-578o-6fz605u7225p 04/05/2016 04/05/2016 2.16.840.1.084506.4.391.11.05694 [facility] 4 month follow up 3ckn5712-14n3-5be5-573p-42i2416vi771 04/05/2016 04/05/2016 2.16.840.1.330673.4.391.11.32851 [facility] 4 month follow up 7h921d6w-j370-1819-5r24-5u27774xg028 04/05/2016 04/05/2016 2.16.840.1.037819.4.391.11.38386 [facility] 4 month follow up bw5h81g3-6l19-528r-05sc-x240s237vf24 04/05/2016 04/05/2016 2.16.840.1.161697.4.391.11.81111 [facility] 4 month follow up r540z32j-8m6c-5htr-iv5q-r9gn2d936v7c 04/05/2016 04/05/2016 2.16.840.1.104316.4.391.11.13606 [facility] 4 month follow up t8159aqy-p35o-941m-g14u-639hisi69p92 04/05/2016 04/05/2016 2.16.840.1.067861.4.391.11.48963 [facility] Unknown 5n5crd26-xuw5-208u-3h3k-704415d95956 07/29/2016 07/29/2016 2.16.840.1.569091.4.391.11.28921 [facility] Unknown h2j45o21-5l17-0jwm-b656-4w69x3694618 07/29/2016 07/29/2016 2.16.840.1.689000.4.391.11.09224 [facility] Unknown 021x8z63-b44g-7d31-1m23-e800vrw3i16f 07/29/2016 07/29/2016 2.16.840.1.178932.4.391.11.29022 [facility] Unknown 5c74l8yu-am41-7r39-f8k5-p64o974b2853 07/29/2016 07/29/2016 2.16.840.1.611175.4.391.11.09157 [facility] Unknown 3o2ud2n2-595d-5416-gi64-72q029953fig 07/29/2016 07/29/2016 2.16.840.1.445958.4.391.11.05735 [facility] Unknown 59n74m5m-791z-7a9d-0817-52h42by88253 07/29/2016 07/29/2016 2.16.840.1.581518.4.391.11.06439 [facility] 4 MONTH F/U 258lsdoc-72yq-4q102h09-76ym-6t2fdi576m75 08/05/2016 08/05/2016 2.16.840.1.596429.4.391.11.69921 [facility] 4 MONTH F/U 42r4l3ck-c569-1t2r-n6ve-x33h5z62wtj9 08/05/2016 08/05/2016 2.16.840.1.637429.4.391.11.44943 [facility] 4 MONTH F/U 0946ex59-2cph-652m-6z27-2r8023eo44o5 08/05/2016 08/05/2016 2.16.840.1.081227.4.391.11.21710 [facility] 4 MONTH F/U s70u845j-xf1a-560n-4qt3-j857s4f4fh74 08/05/2016 08/05/2016 2.16.840.1.395577.4.391.11.69874 [facility] 4 MONTH F/U [id number] 08/05/2016 08/05/2016 2.16.840.1.904739.4.391.11.21777 [facility] ECHO [id number] 08/23/2016 08/23/2016 2.16.840.1.064178.4.391.11.89943 [facility] ECHO [id number] 08/23/2016 08/23/2016 2.16.840.1.560586.4.391.11.83994 [facility] ECHO [id number] 08/23/2016 08/23/2016 2.16.840.1.642181.4.391.11.24896 [facility] ECHO [id number] 08/23/2016 08/23/2016 2.16.840.1.994643.4.391.11.64891 [facility] CAROTID DOPPLER [id number] 08/30/2016 08/30/2016 2.16.840.1.609509.4.391.11.05737 [facility] CAROTID DOPPLER [id number] 08/30/2016 08/30/2016 2.16.840.1.647380.4.391.11.74119 [facility] CAROTID DOPPLER [id number] 08/30/2016 08/30/2016 2.16.840.1.202608.4.391.11.67119 [facility] Unknown [id number] 08/30/2016 08/30/2016 2.16.840.1.594261.4.391.11.66291 [facility] [employer] SCREEEN [id number] 09/06/2016 09/06/2016 2.16.840.1.172748.4.391.11.68113 [facility] [employer] SCREEEN [id number] 09/06/2016 09/06/2016 2.16.840.1.343535.4.391.11.28080 Discharged Inpatient [id number] MERRICK GARZA MD 07/11/2018 07/17/2018 [facility] Procedures Procedure Code Date Perfomer Comments Source Cystoscopy with retrograde pyelography [id number] 07/11/2018 JASON [facility] Laparoscopic colectomy [id number] 07/11/2018 GREG [facility] X-ray of chest, two views [id number] 07/06/2018 [facility] Assessment and Plan No Data Provided for This Section Plan of Care Plan of Care Date Source Discharge Date 12/18/18 4:18pm Disposition HOME, SELF-CARE Instructions/Education Provided Post Operative Pain Prescriptions See Medication Section Referrals MERRICK GARZA MD (Surgery) Order Date: 2 Weeks Entered Date: 07/17/2018 2:47pm Address: [address] [place] [address] JAMES GOMEZ MD (Urology) Order Date: 1 Month Entered Date: 07/17/2018 2:47pm Address: [facility] [place] [address] Additional Instructions/Education REGULAR DIET TOLERATED OUT OF BED, AMBULATE TYLENOL #3 (PAIN MEDICATION) PRESCRIPTION SENT WITH PATIENT FOLLOW UP [address] Cristina GARZA DISCUSSED BENZOIN TINCTURE (USED UNDER WAFER TO HELP STICK) FOLLOW UP WITH MD Luis F GOMEZ IN ONE MONTH DISCUSSED YOUSUF LOJA 07/17/2018 [facility] Social History Social History Date Source No social history information available. 07/17/2018 [facility] Social History ElementQualifiersDate Reported Do you take Aspirin, or a blood thinner . Yes I do take aspirin/ or a blood thinner Aug 05, 2016 Tobacco Use: . Are you a: former smoker, What year did you quit? 1995 Aug 05, 2016 Marital Status: . Aug 05, 2016 Caffeine intake? . Status: Yes, What type: Tea, Soft Drinks, 1 -2 can(s)/bottle(s) a day Aug 05, 2016 Do you exercise? . Answer: No Aug 05, 2016 Do you drink alcohol? . Status: Yes, Type: Beer, How Often? Rarely Aug 05, 2016 Travel outside [place]: . no Aug 05, 2016 Occupation: . unemployed Aug 05, 2016 08/05/2016 [id number] Family History No Data Provided for This Section Advance Directives Order Name Results Value Date Source Advance Directives Advance Directives Directive Response Recorded Date/Time Does the patient have an advance directive? No 07/11/18 5:08pm If yes, is advance directive on file with [facility]? No 07/11/18 5:08pm If not on file with [facility] will patient provide a copy? No 07/11/18 5:08pm Do you have a Directive to Physician? No 07/05/18 2:40pm Do you have a Medical Power of Technical Customer Support Specialist? No 07/05/18 2:40pm Do you have an out of hospital Do Not Resuscitate Order? No 07/05/18 2:40pm Do you have any special needs we should be aware of? No 07/05/18 2:40pm Do you have a support person here with you today? No 07/05/18 2:40pm Did patient receive Notice of Privacy Practices? Yes 07/06/18 12:45pm Did patient receive patient rights and responsibilities? Yes 07/06/18 12:45pm 07/17/2018 [facility] Functional Status No Data Provided for This Section
--- OUTSIDE RECORDS SUMMARY | 2019-03-01 11:16 | XMS REPORT ---
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 Active Assessment Benign essential hypertension I10 Active Assessment Other and unspecified hyperlipidemia E78.5 Active Assessment Type II or unspecified type diabetes mellitus with neurological manifestations, not stated as uncontrolled E11.49 Active Problem Abdominal aortic aneurysm without rupture I71.4 Active Problem Allergic bronchitis, unspecified asthma severity, uncomplicated J45.909 Active Problem Athscl heart disease of [place] coronary artery w/o ang pctrs I25.10 Active Problem Hx of colonic polyp Z86.010 Active Problem [facility] current use of insulin Z79.4 Active Problem Liver mass R16.0 Active Problem Coronary artery disease involving [place] coronary artery of [place] heart without angina pectoris I25.10 Active Problem Moderate aortic stenosis I35.0 Active Problem Benign essential hypertension I10 Active Problem 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 Active Problem 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 Active Problem Personal history of malignant neoplasm of prostate Z85.46 Active Problem Diabetic polyneuropathy associated with type 2 diabetes mellitus E11.42 Active Problem Type 2 diabetes mellitus with hyperglycemia E11.65 Active Problem Occlusion and stenosis of bilateral carotid arteries I65.23 Active Problem Cardiomyopathy, unspecified type I42.9 Active Problem 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 Active Problem Type II or unspecified type diabetes mellitus with neurological manifestations, not stated as uncontrolled E11.49 Active Problem Benign paroxysmal positional vertigo, unspecified laterality H81.10 Active Problem History of penile implant Z98.89 Active Problem Cardiomyopathy, unspecified I42.9 Active Problem Occlusion and stenosis of unspecified carotid artery I65.29 Active Problem Hx of radical prostatectomy Z90.79 Active Problem Other and unspecified hyperlipidemia E78.5 Active Medications Medication Code System Code Instructions Start Date End Date Status Dosage Ranexa [facility] 29864129961 1000 MG Orally Twice a day Active 1 tablet MetFORMIN HCl ER [facility] 52586747541 500 MG Active TAKE 2 TABLETS BY MOUTH TWICE A DAY Losartan Potassium [facility] 38947527168 25 MG Orally Once a day Active 1/2 half tablet GlipiZIDE ER [facility] 89486184183 10 MG Active TAKE 1 TABLET BY MOUTH TWICE DAILY Atorvastatin Calcium [facility] 87907410380 40 MG Active TAKE 1 TABLET BY MOUTH ONCE A DAY Levemir FlexTouch [facility] 29931154147 100 units/mL Subcutaneously 50 units at night November 03, 2017 October 12, 2019 Active inject Aspir-81 [facility] 15222716271 81 MG Orally Once a day Active 1 tablet Advil Cold/Sinus [facility] 56093403586 30-200 MG Orally every 6 hrs February 14, 2017 Active 1 tablet as needed MetFORMIN HCl ER [facility] 69524109573 500 MG Active TAKE 2 TABLETS BY MOUTH TWICE A DAY Levemir [facility] [address]-12 100UNIT Active INJECT 25 UNITS SUBCUTANEOUSLY ONCE AT BEDTIME Nitro-Dur [facility] 04027995577 0.1 MG/HR Transdermal Once a day Active 1 patch to skin remove after 12 hours Plavix [facility] 35639568075 75 MG Orally Once a day Active 1 tablet OneTouch Verio [facility] 18869957437 - Active USE ONE STRIP TO CHECK BLOOD GLUCOSE THREE TIMES DAILY Juluvia [facility] 75739451287 100MG Orally Once a day Active 1 tablet Metoprolol Tartrate [facility] 29946860618 25 MG Orally daily Active 1 tablet with food GlipiZIDE ER [facility] 42923966348 10 MG Active TAKE 1 TABLET BY MOUTH TWICE DAILY OneTouch Delica Lancets 33G [facility] 51345614280 33G Active USE ONE LANCET TO CHECK BLOOD GLUCOSE TRHEE TIMES DAILY Vital Signs Date/Time: Aug 17, 2018 BMI 25.21 Index Weight 165.8 lbs Height 68.0 in Temperature 96.0 F Cardiac Monitoring Heart Rate 85 /min Blood Pressure Diastolic 70 mm Hg Blood Pressure Systolic 108 mm Hg Results Name Result Date Reference Range Unit Abnormality Flag CBC (INCLUDES DIFF/PLT) ----ABSOLUTE NEUTROPHILS 3405 [id number] 9474-4454 cells/uL N ----MPV 10.2 11088271 7.5-12.5 fL N ----EOSINOPHILS 3.5 97257663 % N ----HEMOGLOBIN 12.0 43617599 13.2-17.1 g/dL L ----MONOCYTES 7.3 08266099 % N ----HEMATOCRIT 38.1 90630848 38.5-50.0 % L ----LYMPHOCYTES 26.6 54901118 % N ----MCV 84.1 84995416 80.0-100.0 fL N ----NEUTROPHILS 61.9 10605455 % N ----MCH 26.5 96933927 27.0-33.0 pg L ----ABSOLUTE BASOPHILS 39 54431518 0-200 cells/uL N ----MCHC 31.5 67853906 32.0-36.0 g/dL L ----BASOPHILS 0.7 15257308 % N ----ABSOLUTE EOSINOPHILS 193 30124411 15-500 cells/uL N ----RDW 14.5 28834102 11.0-15.0 % N ----WHITE BLOOD CELL COUNT 5.5 96578756 3.8-10.8 Thousand/uL N ----PLATELET COUNT 292 02421293 140-400 Thousand/uL N ----ABSOLUTE MONOCYTES 402 48130852 200-950 cells/uL N ----RED BLOOD CELL COUNT 4.53 23604479 4.20-5.80 Million/uL N ----ABSOLUTE LYMPHOCYTES 1463 22257029 850-3900 cells/uL N HEMOGLOBIN A1c ----HEMOGLOBIN A1c 8.1 14040618 <5.7 % of total Hgb H LIPID PANEL ----NON HDL CHOLESTEROL 85 89238443 <130 mg/dL (calc) N ----CHOL/HDLC RATIO 2.9 05983899 <5.0 (calc) N ----CHOLESTEROL, TOTAL 129 20379427 <200 mg/dL N ----HDL CHOLESTEROL 44 41722396 >40 mg/dL N ----TRIGLYCERIDES 131 89620872 <150 mg/dL N ----LDL-CHOLESTEROL 64 88578378 mg/dL (calc) N COMPREHENSIVE METABOLIC PANEL ----SODIUM 139 46139966 135-146 mmol/L N ----BUN/CREATININE RATIO NOT APPLICABLE 81178367 6-22 (calc) ----CHLORIDE 109 20180817 98-110 mmol/L N ----POTASSIUM 4.3 20180817 3.5-5.3 mmol/L N ----CALCIUM 8.7 20180817 8.6-10.3 mg/dL N ----PROTEIN, TOTAL 7.3 20180817 6.1-8.1 g/dL N ----CARBON DIOXIDE 18 20180817 20-32 mmol/L L ----ALBUMIN/GLOBULIN RATIO 1.5 20180817 1.0-2.5 (calc) N ----eGFR NON-AFR. MALDIVIAN 88 20180817 > OR=60 mL/min/1.73m2 N ----BILIRUBIN, TOTAL 0.3 20180817 0.2-1.2 mg/dL N ----eGFR 101 20180817 > OR=60 mL/min/1.73m2 N ----UREA NITROGEN (BUN) 22 20180817 7-25 mg/dL N ----ALBUMIN 4.4 20180817 3.6-5.1 g/dL N ----GLOBULIN 2.9 20180817 1.9-3.7 g/dL (calc) N ----CREATININE 0.91 20180817 0.70-1.25 mg/dL N ----ALT 9 20180817 9-46 U/L N ----GLUCOSE 155 20180817 65-139 mg/dL H ----ALKALINE PHOSPHATASE 80 20180817 40-115 U/L N ----AST 9 20180817 10-35 U/L L TSH ----TSH 1.65 20180817 0.40-4.50 mIU/L N Summary Purpose [employer] Submission
[2019-03-01 14:00] VITALS: BP 103/71
--- NOTE | 2019-04-26 04:53 | Operative Report ---
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 OPERATION PERFORMED: Cystolitholapaxy of ileal conduit urinary diversion. ANESTHESIA: General. COMPLICATIONS: None. CLINICAL SUMMARY: Randy Casillas is a complicated 68-year-old man with ileal conduit urinary diversion. The patient is found to have stones within his diversion. He is brought for management. He is aware of the risks of bleeding, infection, injury to adjacent structures, need for additional procedures, and he elected to proceed. OPERATIVE PROCEDURE IN DETAIL: Informed consent was verified. Randy Casillas was properly identified, taken to the operating room, placed on the cystoscopy table in supine position. Anesthesia was uneventfully begun. The patient's abdomen and ileal conduit were prepared and draped in usual sterile fashion. A flexible cystoscope was brought into the ileal conduit, which was brought down in a retrograde fashion, until we reached the apex of the ileal conduit. There, we identified three stone burden regions. We utilized the holmium laser to fragment the stones. We also utilized the holmium laser to disconnect the stones from the underlying stone causing agent, which are rhoda left over from the creation of the ileal conduit urinary diversions. These rhoda apparently have not been excluded from the ileal conduit lumen. We also utilized Nitinol tipless basket in order to extract stone burden. Once all visible stones were removed, the cystoscope was withdrawn and the patient was uneventfully reversed from anesthesia and taken to recovery room in stable condition. There were no complications to the procedure. The patient tolerated the procedure well. Estimated blood loss was minimal. Explicit postop instructions were given. We will follow the patient up in the office and of course on an indefinite basis. Bryant Stratton MD [place]/MOD[facility] /[id number] cc: Donaldo Stearns
== END | disposition home or self-care (01) ==
LOC: OR 11:08
PROVIDERS: ATTEND Urology
DX: N20.0 Calculus of kidney (principal); I25.10 Atherosclerotic heart disease of native coronary artery without angina pectoris; I10 Essential (primary) hypertension; E11.9 Type 2 diabetes mellitus without complications; K21.9 Gastro-esophageal reflux disease without esophagitis; Z88.1 Allergy status to other antibiotic agents; Z01.810 Encounter for preprocedural cardiovascular examination; Z01.812 Encounter for preprocedural laboratory examination; Z01.818 Encounter for other preprocedural examination; Z79.84 Long term (current) use of oral hypoglycemic drugs; Z79.02 Long term (current) use of antithrombotics/antiplatelets; Z79.82 Long term (current) use of aspirin; Z79.4 Long term (current) use of insulin
CPT/HCPCS: 36415 ×2; 50961; 71046; 80048; 82948; 85025; 88300; 93005; J0696; J1580; J2001; J2250; J2370; J2405; J2704; J3010

== ENCOUNTER → 2020-07-01 | Outpatient (CLI) | payer MEDICARE ==
[~2020-07-01] MED LIST changes: -B&O 60MG R/S 60 MG SUPP PR ONE; -CEFTRIAXONE SOD 1 GM/NS 50 ML 50 ML IV ONE; -FENTANYL CITRATE/PF 100MCG/2 ML INJ ONE; +GADOBENATE DIMEGLUMINE 1 ML IV ONE; -GENTAMICIN 80MG/NS 100 ML 200 ML IV ONE; +IOPAMIDOL 300 MG/ML 15ML VIAL IT ONE; -IOPAMIDOL 610MG/1ML 300 MG/ML VIAL IV ONE; +LIDOCAINE HCL 1% LOCAL INJ 20 ML VIAL ONE; -LIDOCAINE HCL 2% LOCAL INJ 5 ML SDV VIAL INJ ONE; -MIDAZOLAM HCL 2 MG/2 ML VIAL ONE; -ONDANSETRON HCL INJ 2MG/ML 2ML 2 MG/ML VIAL ONE; -PHENYLEPHRINE HCL 1% 10 MG/ML VIAL ONE; -PROPOFOL IV EMULSION 10 MG/ML 20 ML VIAL ONE; -SEVOFLURANE INHAL SOLN 250 ML PEN BTL ONE
--- NOTE | 2020-07-01 10:54 | Diagnostic Imaging Report ---
EXAM: INJECTION ARTHROGRAM SHOULDER, FLURO GUIDE NEEDLE PLCMNT/INJ DATE: 07/01/2020 9:56 AM INDICATION: Left shoulder impingement, left shoulder pain COMPARISON: None Physician performing procedure: Dr. Sukhdev Miles PROCEDURES PERFORMED: Fluoroscopically-guided left glenohumeral joint arthrogram with MRI to follow Fluoro time: 0.5 minutes Dose: 1.9mGy Anesthesia: Local, 1% lidocaine Devices: 22 gauge BD Quincke needle PROCEDURE REPORT: After written and verbal consent were obtained, the patient was placed supine on the fluoroscopy table with the left shoulder in external rotation. Using fluoroscopic guidance, sterile technique and local anesthesia, a 22 gauge, 3.5 inch needle was inserted percutaneously into the left glenohumeral joint. Proper placement was confirmed by injecting Isovue 300 into the joint under fluoroscopy. Next, 10cc of a 1:200 mixture of Multihance with Isovue 300 were then injected. Complications: None Blood loss: Minimal Samples: None Patient disposition: MRI in stable condition. IMPRESSION: Uncomplicated fluoroscopically-guided left glenohumeral joint arthrogram with MRI to follow. Contrast is within the joint. See MRI report for full findings. Signed by: Sukhdev Miles MD on 07/01/2020 10:50 AM
--- NOTE | 2020-07-01 11:48 | Diagnostic Imaging Report ---
TECHNIQUE: Magnetic resonance imaging of the LEFT SHOULDER was performed after intra-articular injection of contrast. COMPARISON: None available. HISTORY: Left shoulder pain, impingement syndrome of left shoulder FINDINGS: MUSCLES AND TENDONS: MUSCLES AND TENDONS: Rotator Cuff: Tendons: Supraspinatus: Full-thickness near full width tear of the supraspinatus tendon with few posterior junctional fibers remaining intact. Torn fibers are retracted to the mid humeral head measuring approximately 2.2 cm. Infraspinatus: Tendinosis with low-grade interstitial tearing at the insertion footprint. Teres Minor: Intact Subscapularis: Intact Muscles: Mild fatty atrophy of the supraspinatus muscle. Biceps Tendon: The long head of the biceps tendon is intact and within the intertubercular groove. GLENOHUMERAL JOINT: Glenoid Labrum: No displaced tear. Articular Cartilage: Diffuse cartilage thinning along the inferior humeral head. Mild superior subluxation of the humeral head in relation to the glenoid fossa. AC JOINT AND ACROMION: Mild hypertrophic degenerative changes of the acromioclavicular joint. Type III (hooked) acromion with mild lateral downsloping. Intra-articular glenohumeral contrast extends into the subacromial/subdeltoid bursa. Bone: No fracture or acute osseous abnormality. No infiltrative bone marrow replacing signal abnormality. Reactive subchondral cystic changes along the posterior aspect of the greater tuberosity. Soft Tissues: Otherwise, the soft tissues appear unremarkable. IMPRESSION: Full-thickness near full width tear of the supraspinatus tendon with retraction of torn fibers to the mid humeral head and mild supraspinatus muscle atrophy. Additional low-grade interstitial tearing of the infraspinatus tendon. Mild hypertrophic degenerative changes of the AC joint with type III lateral downsloping acromion, which narrows the supraspinatus tendon outlet. Signed by: Dr. Doug Miller M.D. on 07/01/2020 11:45 AM
== END ==
LOC: DX 09:25
PROVIDERS: ATTEND Orthopaedic Surgery
DX: M75.42 Impingement syndrome of left shoulder (principal); S43.422A Sprain of left rotator cuff capsule, initial encounter
CPT/HCPCS: 23350; 73222; 77002; A9577; J2001; Q9967

== ENCOUNTER → 2020-10-08 | Outpatient (CLI) | payer MEDICARE ==
[~2020-10-08] MED LIST changes: -GADOBENATE DIMEGLUMINE 1 ML IV ONE; -IOPAMIDOL 300 MG/ML 15ML VIAL IT ONE; -LIDOCAINE HCL 1% LOCAL INJ 20 ML VIAL ONE
== END ==
LOC: RAD 09:38
PROVIDERS: ATTEND Urology
DX: Z87.442 Personal history of urinary calculi (principal)
CPT/HCPCS: 74018

== ENCOUNTER 2020-11-30 10:49 | Inpatient (IN) | payer MEDICARE ==
[2020-11-26 14:09] LABS: BASOPHILS % 0.4 % (0.0-1.0); EOSINOPHILS # (AUTO) 0.1 (0.0-0.4); EOSINOPHILS % 1.7 % (0.0-6.0); HEMATOCRIT 39.5 % (38.2-49.6); HEMOGLOBIN 11.9 g/dL (14.0-18.0); LYMPHOCYTES # (AUTO) 1.2 (1.0-3.2); MEAN CORPUSCULAR HEMOGLOBIN 26.2 pg (28-32); MEAN CORPUSCULAR HGB CONC 30.1 g/dL (31-35); MONOCYTES # (AUTO) 0.5 (0.2-0.8); MONOCYTES % 10.3 % (4.4-11.3); NEUTROPHILS # (AUTO) 3.3 (2.1-6.9); NEUTROPHILS % 63.4 % (38.7-80.0); PLATELET COUNT 261 x10e3/uL (140-360); RED BLOOD COUNT 4.54 x10e6/uL (4.3-5.7); RED CELL DISTRIBUTION WIDTH 19.7 % (11.7-14.4)
[2020-11-26 14:30] LABS: ALANINE AMINOTRANSFERASE 31 IU/L (0-55); ALBUMIN 3.9 g/dL (3.5-5.0); ALBUMIN/GLOBULIN RATIO 1.2 (0.8-2.0); ALKALINE PHOSPHATASE 101 IU/L (40-150); ANION GAP 17.5 mmol/L (8-16); BLOOD UREA NITROGEN 27 mg/dL (7-26); BUN/CREATININE RATIO 19 (6-25); CALCIUM 8.7 mg/dL (8.4-10.2); CARBON DIOXIDE 24 mmol/L (22-29); CHLORIDE 108 mmol/L (98-107); EST GLOMERULAR FILTRATION RATE > 60 ML/MIN (60-); GLUCOSE 121 mg/dL (74-118); POTASSIUM 4.5 mmol/L (3.5-5.1); SODIUM 145 mmol/L (136-145)
[~2020-11-30] VITALS: Ht 172.7 cm; Wt 89.8 kg
[~2020-11-30 10:49] MED LIST changes: +FERROUS SULFAT325 MG PO
[2020-11-30] MEDS ORDERED: CLINDAMYCIN 300MG 50 ML IV ONE (11:04)
[2020-11-30] MEDS ORDERED: VANCOMYCIN 1GM/NS 250 ML 250 ML ONE (11:05)
[2020-11-30] MEDS ORDERED: MEROPENEM 1GM 100 ML IV ONE (11:06)
[2020-11-30] MEDS ORDERED: NITROFURANTOIN100 MG PO ×2 (11:27→11:29)
[2020-11-30] MEDS ORDERED: BACTRIM 400-801 EACH PO (11:29)
[2020-11-30] MEDS ORDERED: VANCOMYCIN HCL 500 MG ONE (12:48)
[2020-11-30] MEDS ORDERED: BACITRACIN ZINC 15 GM OINT ONE (12:48)
[2020-11-30] MEDS ORDERED: PROPOFOL IV EMULSION 10 MG/ML 20 ML VIAL ONE ×2 (13:09→19:29)
[2020-11-30] MEDS ORDERED: GENTAMICIN SULFATE 40 MG/ML 2 ML VIAL ONE (13:14)
[2020-11-30] MEDS ORDERED: VANCOMYCIN HCL 1 GM VIAL ONE (13:14)
[2020-11-30] MEDS ORDERED: SODIUM CHLORIDE 0.9% 500ML 500 ML ONE (13:14)
[2020-11-30] MEDS ORDERED: ACETAMINOPHEN 1000 MG/100 ML 100 ML IV ONE (14:06)
[2020-11-30] MEDS ORDERED: NALOXONE HCL INJ 0.4 MG/ML AMP IV PRN (16:15)
[2020-11-30] MEDS ORDERED: MORPHINE SULFATE 1 MG/ML 30ML PCA IV PRN (16:15)
[2020-11-30] MEDS ORDERED: ONDANSETRON HCL INJ 2MG/ML 2ML 2 MG/ML VIAL IV PRN ×2 (16:15→20:45)
[2020-11-30] MEDS ORDERED: DIPHENHYDRAMINE HCL 25 MG CAP PO PRN (16:15)
[2020-11-30] MEDS ORDERED: SOD CHL 0.45%/POT CHL 20MEQ 1,000 ML IV SCH (16:15)
[2020-11-30] MEDS ORDERED: DEXTROSE 5% 250ML 250 ML IV ONE (16:26)
[2020-11-30] MEDS ORDERED: FENTANYL CITRATE/PF 100MCG/2 ML INJ ONE (16:50)
[2020-11-30] MEDS ORDERED: MORPHINE SULFATE 1 MG/ML 30ML PCA ONE (17:09)
[2020-11-30] MEDS ORDERED: ACETAMINOPHEN 1000 MG/100 ML IV PRN (18:00)
[2020-11-30 18:43] VITALS: BP 117/67
[2020-11-30 18:45] VITALS: BP 140/81
[2020-11-30] MEDS ORDERED: ONDANSETRON HCL INJ 2MG/ML 2ML 2 MG/ML VIAL ONE (19:29)
[2020-11-30] MEDS ORDERED: ETOMIDATE 2 MG/ML 10 ML INJ IV ONE (19:29)
[2020-11-30] MEDS ORDERED: POVIDONE IODINE 0.05% 0.05 % ML PO ONE (19:29)
[2020-11-30] MEDS ORDERED: SEVOFLURANE INHAL SOLN 250 ML PEN BTL ONE (19:29)
[2020-11-30] MEDS ORDERED: DEXAMETHASONE SOD PHOS INJ 4 MG/ML VIAL ONE (19:29)
[2020-11-30 20:00] VITALS: BP 129/66
[2020-11-30 20:09] LABS: BASOPHILS % 0.2 % (0.0-1.0); HEMATOCRIT 37.9 % (38.2-49.6); HEMOGLOBIN 11.6 g/dL (14.0-18.0); LYMPHOCYTES # (AUTO) 0.4 (1.0-3.2); LYMPHOCYTES % 4.6 % (18.0-39.1); MEAN CORPUSCULAR HEMOGLOBIN 26.4 pg (28-32); MEAN CORPUSCULAR HGB CONC 30.6 g/dL (31-35); MEAN CORPUSCULAR VOLUME 86.3 fL (81-99); MONOCYTES # (AUTO) 0.7 (0.2-0.8); MONOCYTES % 7.6 % (4.4-11.3); NEUTROPHILS # (AUTO) 8.3 (2.1-6.9); NEUTROPHILS % 87.2 % (38.7-80.0); PLATELET COUNT 234 x10e3/uL (140-360); RED BLOOD COUNT 4.39 x10e6/uL (4.3-5.7); RED CELL DISTRIBUTION WIDTH 19.2 % (11.7-14.4)
[2020-11-30] MEDS: MEROPENEM 1GM 100 ML IV SCH (20:31)
[2020-11-30 20:32] LABS: ANION GAP 13.3 mmol/L (8-16); BLOOD UREA NITROGEN 17 mg/dL (7-26); BUN/CREATININE RATIO 14 (6-25); CALCIUM 7.9 mg/dL (8.4-10.2); CARBON DIOXIDE 23 mmol/L (22-29); CHLORIDE 106 mmol/L (98-107); CREATININE, SERUM 1.23 mg/dL (0.72-1.25); EST GLOMERULAR FILTRATION RATE > 60 ML/MIN (60-); GLUCOSE 170 mg/dL (74-118); POTASSIUM 5.3 mmol/L (3.5-5.1); SODIUM 137 mmol/L (136-145)
[2020-11-30] MEDS ORDERED: SODIUM CHLORIDE 0.9% 1000ML 1,000 ML IV SCH (20:45)
[2020-11-30] MEDS ORDERED: METOPROLOL SUCCINATE 25 MG TAB XL PO SCH (21:00)
[2020-11-30] MEDS ORDERED: DEXTROSE 50% SYRINGE 50 ML IV PRN (21:00)
[2020-11-30] MEDS: INSULIN LISPRO 100 UNIT/1 ML 3ML VIAL SQ SCH (21:00)
[2020-11-30] MEDS ORDERED: VANCOMYCIN 1GM/NS 250 ML 250 ML IV SCH (22:00)
[2020-12-01] VITALS (8 sets, daily range): BP systolic 103–119; BP diastolic 51–63
[2020-12-01 05:57] LABS: BASOPHILS % 0.1 % (0.0-1.0); HEMATOCRIT 33.8 % (38.2-49.6); HEMOGLOBIN 10.4 g/dL (14.0-18.0); LYMPHOCYTES # (AUTO) 0.9 (1.0-3.2); MEAN CORPUSCULAR HEMOGLOBIN 25.9 pg (28-32); MEAN CORPUSCULAR HGB CONC 30.8 g/dL (31-35); MEAN CORPUSCULAR VOLUME 84.1 fL (81-99); MONOCYTES # (AUTO) 0.7 (0.2-0.8); MONOCYTES % 8.2 % (4.4-11.3); NEUTROPHILS # (AUTO) 6.5 (2.1-6.9); NEUTROPHILS % 80.3 % (38.7-80.0); PLATELET COUNT 236 x10e3/uL (140-360); RED BLOOD COUNT 4.02 x10e6/uL (4.3-5.7); RED CELL DISTRIBUTION WIDTH 19.5 % (11.7-14.4)
[2020-12-01 06:18] LABS: BLOOD UREA NITROGEN 20 mg/dL (7-26); BUN/CREATININE RATIO 14 (6-25); CALCIUM 7.9 mg/dL (8.4-10.2); CARBON DIOXIDE 23 mmol/L (22-29); CHLORIDE 103 mmol/L (98-107); EST GLOMERULAR FILTRATION RATE > 60 ML/MIN (60-); GLUCOSE 363 mg/dL (74-118); SODIUM 134 mmol/L (136-145)
[2020-12-01] MEDS ORDERED: INSULIN LISPRO 100 UNIT/1 ML 3ML VIAL SQ ONE (09:00)
[2020-12-01] MEDS: MEROPENEM 1GM 100 ML IV SCH ×2 (09:28→21:29)
[2020-12-01] MEDS: LOSARTAN POTASSIUM 25 MG TAB PO SCH (09:29)
[2020-12-01] MEDS: PANTOPRAZOLE SOD 40 MG TABEC PO SCH (09:30)
[2020-12-01] MEDS: SENNA-S TABLET PO SCH ×2 (09:31→17:40)
[2020-12-01] MEDS: METOPROLOL SUCCINATE 50 MG TAB XL PO SCH (09:33)
[2020-12-01] MEDS: GLIPIZIDE 5 MG TAB PO SCH ×2 (10:05→17:40)
[2020-12-01] MEDS: HYDROCODONE/APAP 10MG-325MG TAB PO PRN ×4 (10:05→22:55)
[2020-12-01] MEDS: INSULIN GLARGINE 100 UNITS/ML VIAL SQ SCH ×2 (10:16→21:32)
[2020-12-01] MEDS: INSULIN LISPRO 100 UNIT/1 ML 3ML VIAL SQ SCH ×4 (10:16→21:33)
[2020-12-01] MEDS: ATORVASTATIN 20 MG TAB PO SCH (21:30)
[2020-12-02] VITALS: BP 114/58
[2020-12-02 04:00] VITALS: BP 138/68
[2020-12-02 05:47] LABS: BASOPHILS % 0.5 % (0.0-1.0); EOSINOPHILS # (AUTO) 0.1 (0.0-0.4); EOSINOPHILS % 1.1 % (0.0-6.0); HEMATOCRIT 34.3 % (38.2-49.6); HEMOGLOBIN 10.5 g/dL (14.0-18.0); LYMPHOCYTES # (AUTO) 1.3 (1.0-3.2); LYMPHOCYTES % 15.8 % (18.0-39.1); MEAN CORPUSCULAR HGB CONC 30.6 g/dL (31-35); MEAN CORPUSCULAR VOLUME 84.9 fL (81-99); MONOCYTES # (AUTO) 0.7 (0.2-0.8); MONOCYTES % 8.5 % (4.4-11.3); NEUTROPHILS % 73.7 % (38.7-80.0); PLATELET COUNT 212 x10e3/uL (140-360); RED BLOOD COUNT 4.04 x10e6/uL (4.3-5.7); RED CELL DISTRIBUTION WIDTH 19.5 % (11.7-14.4)
[2020-12-02 06:14] LABS: ANION GAP 12.7 mmol/L (8-16); BLOOD UREA NITROGEN 18 mg/dL (7-26); BUN/CREATININE RATIO 14 (6-25); CALCIUM 8.2 mg/dL (8.4-10.2); CARBON DIOXIDE 25 mmol/L (22-29); CHLORIDE 103 mmol/L (98-107); CREATININE, SERUM 1.28 mg/dL (0.72-1.25); EST GLOMERULAR FILTRATION RATE > 60 ML/MIN (60-); GLUCOSE 227 mg/dL (74-118); POTASSIUM 4.7 mmol/L (3.5-5.1); SODIUM 136 mmol/L (136-145)
[2020-12-02] MEDS: GLIPIZIDE 5 MG TAB PO SCH ×2 (07:27→17:09)
[2020-12-02] MEDS: PANTOPRAZOLE SOD 40 MG TABEC PO SCH (07:27)
[2020-12-02 08:00] VITALS: BP 133/76
[2020-12-02] MEDS ORDERED: ONDANSETRON HCL 4 MG ORAL DISINTEGRATING TAB PO PRN (08:00)
[2020-12-02] MEDS: INSULIN LISPRO 100 UNIT/1 ML 3ML VIAL SQ SCH ×4 (08:00→21:56)
[2020-12-02] MEDS: SENNA-S TABLET PO SCH ×2 (08:29→17:09)
[2020-12-02] MEDS: METOPROLOL SUCCINATE 50 MG TAB XL PO SCH (08:29)
[2020-12-02] MEDS: MEROPENEM 1GM 100 ML IV SCH ×2 (08:29→21:54)
[2020-12-02] MEDS: LOSARTAN POTASSIUM 25 MG TAB PO SCH (08:29)
[2020-12-02] MEDS: INSULIN GLARGINE 100 UNITS/ML VIAL SQ SCH ×2 (09:08→21:55)
[2020-12-02] MEDS: ACETAMINOPHEN/CODEINE 300MG - 30MG TAB PO PRN ×3 (09:24→19:58)
[2020-12-02 11:46] VITALS: BP 118/69
[2020-12-02 16:00] VITALS: BP 126/69
[2020-12-02 20:00] VITALS: BP 124/66
[2020-12-02] MEDS: ATORVASTATIN 20 MG TAB PO SCH (21:54)
[2020-12-03] VITALS: BP 125/73
[2020-12-03] MEDS: ACETAMINOPHEN/CODEINE 300MG - 30MG TAB PO PRN ×2 (01:21→05:38)
[2020-12-03 04:51] LABS: BASOPHILS % 0.5 % (0.0-1.0); EOSINOPHILS # (AUTO) 0.1 (0.0-0.4); EOSINOPHILS % 1.8 % (0.0-6.0); HEMATOCRIT 32.8 % (38.2-49.6); HEMOGLOBIN 10.3 g/dL (14.0-18.0); LYMPHOCYTES # (AUTO) 1.1 (1.0-3.2); LYMPHOCYTES % 17.2 % (18.0-39.1); MEAN CORPUSCULAR HEMOGLOBIN 26.1 pg (28-32); MEAN CORPUSCULAR HGB CONC 31.4 g/dL (31-35); MONOCYTES # (AUTO) 0.6 (0.2-0.8); MONOCYTES % 8.6 % (4.4-11.3); NEUTROPHILS # (AUTO) 4.7 (2.1-6.9); NEUTROPHILS % 71.6 % (38.7-80.0); PLATELET COUNT 201 x10e3/uL (140-360); RED BLOOD COUNT 3.95 x10e6/uL (4.3-5.7); RED CELL DISTRIBUTION WIDTH 19.2 % (11.7-14.4)
[2020-12-03 04:58] VITALS: BP 140/76
[2020-12-03 05:16] LABS: ANION GAP 15.2 mmol/L (8-16); BLOOD UREA NITROGEN 16 mg/dL (7-26); BUN/CREATININE RATIO 16 (6-25); CALCIUM 8.7 mg/dL (8.4-10.2); CARBON DIOXIDE 26 mmol/L (22-29); CHLORIDE 104 mmol/L (98-107); EST GLOMERULAR FILTRATION RATE > 60 ML/MIN (60-); GLUCOSE 155 mg/dL (74-118); POTASSIUM 4.2 mmol/L (3.5-5.1); SODIUM 141 mmol/L (136-145)
[2020-12-03] MEDS: GLIPIZIDE 5 MG TAB PO SCH (07:14)
[2020-12-03] MEDS: PANTOPRAZOLE SOD 40 MG TABEC PO SCH (07:14)
[2020-12-03 07:22] VITALS: BP 125/80
[2020-12-03 07:26] VITALS: BP 125/80
[2020-12-03] MEDS: INSULIN LISPRO 100 UNIT/1 ML 3ML VIAL SQ SCH (08:07)
[2020-12-03] MEDS: MEROPENEM 1GM 100 ML IV SCH (08:48)
[2020-12-03] MEDS: METOPROLOL SUCCINATE 50 MG TAB XL PO SCH (08:49)
[2020-12-03] MEDS: SENNA-S TABLET PO SCH (08:49)
[2020-12-03] MEDS: LOSARTAN POTASSIUM 25 MG TAB PO SCH (08:49)
[2020-12-03] MEDS: INSULIN GLARGINE 100 UNITS/ML VIAL SQ SCH (09:05)
[2020-12-03 11:45] VITALS: BP 120/76
[2020-12-03] MEDS ORDERED: TYLENOL # 31 EA PO (12:30)
== END 2020-12-03 13:05 | disposition home or self-care (01) | DRG 940 ==
LOC: OR 10:49 → PACU V 16:05 → MED/SURG 17:16
PROVIDERS: ADMIT Internal Medicine; ATTEND Internal Medicine
PROC: 0TJB8ZZ Inspection of Bladder, Via Natural or Artificial Opening Endoscopic (ICD-10-PCS; 2020-11-30)
PROC: 02HV33Z Insertion of Infusion Device into Superior Vena Cava, Percutaneous Approach (ICD-10-PCS; 2020-11-30)
PROC: 0VUS0JZ Supplement Penis with Synthetic Substitute, Open Approach (ICD-10-PCS; principal; 2020-11-30 13:00)
PROC: 0VPS0JZ Removal of Synthetic Substitute from Penis, Open Approach (ICD-10-PCS; 2020-11-30 13:00)
DX: Z44.8 Encounter for fitting and adjustment of other external prosthetic devices (principal); N32.1 Vesicointestinal fistula; N39.0 Urinary tract infection, site not specified; C61 Malignant neoplasm of prostate; N52.9 Male erectile dysfunction, unspecified; R31.0 Gross hematuria; R81 Glycosuria; Z87.442 Personal history of urinary calculi; Z43.8 Encounter for attention to other artificial openings; Z93.3 Colostomy status; Z20.822 Contact with and (suspected) exposure to COVID-19
CPT/HCPCS: 36415; 36569; 71045; 71046; 80048; 80053; 82948; 83735; 84152; 85025; 87086; 87186; 93005; C1769; C1776; C1813; J1100; J1580; J1815; J2270; J2405; J3010; J3370; J7030; J7040; J7070; U0002

== ENCOUNTER → 2022-02-18 | Outpatient (CLI) | payer MEDICARE ==
[~2022-02-18] MED LIST changes: +BACTRIM 400-801 EACH PO; +DIATRIZOATE MEGL/DIATRIZOA SOD 30 ML BTL PO ONE; +IOPAMIDOL 370 MG/ML 100 ML INFUS..BTL INJ ONE; +NITROFURANTOIN100 MG PO; +SODIUM CHLORIDE 0.9% 250ML 250 ML ONE; +SODIUM CHLORIDE 0.9% 500ML 0 ML ONE; +TYLENOL # 31 EA PO
[2022-02-18 08:33] LABS: CREATININE, SERUM 1.36 mg/dL (0.72-1.25)
== END ==
LOC: CT 07:25
PROVIDERS: ATTEND Urology
DX: C61 Malignant neoplasm of prostate (principal); N32.1 Vesicointestinal fistula
CPT/HCPCS: 36415; 74178; 82565; 84520; J7050; Q9963; Q9967; J7040